=== PATIENT | male | born 1950 | race Caucasian/White ===

== ENCOUNTER 2020-02-03 21:58 | Inpatient (IN) | payer MEDICARE, MEDICAID ==
[~2020-02-03] VITALS: Ht 182.9 cm; Wt 96.7 kg
[2020-02-03] MEDS ORDERED: methylPREDNISolone sod succ 125mg/2ml vial IV ONE (22:10)
[2020-02-03] MEDS ORDERED: ipratropium/albuterol 3ml nebule NEB ONE (22:10)
[2020-02-03] MEDS ORDERED: propofol 1000mg/100ml bottle 100 ML IV PRN (22:25)
[2020-02-03 22:35] LABS: BASOPHILS % (AUTO) 0.4 % (0-1); EOSINOPHILS # (AUTO) 0.1 X10'3 (0-0.9); EOSINOPHILS % (AUTO) 1.1 % (0-6); HEMOGLOBIN 13.3 g/dl (14.0-17.9); LYMPHOCYTES # (AUTO) 0.7 X10'3 (1.1-4.8); LYMPHOCYTES % (AUTO) 6.3 % (21-51); MEAN CORPUSCULAR HEMOGLOBIN 31.8 PG (27.0-31.0); MEAN CORPUSCULAR HGB CONC 33.1 g/dL (33.0-36.5); MEAN CORPUSCULAR VOLUME 95.9 FL (78-98); MEAN PLATELET VOLUME 9.6 FL (7.4-10.4); MONOCYTES # (AUTO) 0.3 X10'3 (0-0.9); MONOCYTES % (AUTO) 2.5 % (2-12); NEUTROPHILS # (AUTO) 10.3 X10'3 (1.8-7.7); NEUTROPHILS % (AUTO) 89.7 % (42-75); PLATELET COUNT 160 X10'3 (140-440); RED BLOOD COUNT 4.17 X10'6 (4.70-6.10); RED CELL DISTRIBUTION WIDTH 16.8 % (11.5-14.5); WHITE BLOOD COUNT 11.5 X10'3 (4.5-11.0)
[2020-02-03] MEDS ORDERED: furosemide 10 MG/1 ML 10ml inj IV ONE (22:35)
[2020-02-03] MEDS ORDERED: AMLO2.5T2 PO (22:40)
[2020-02-03] MEDS ORDERED: UMEC1DIS (22:40)
[2020-02-03] MEDS ORDERED: DULO-31 PO (22:41)
[2020-02-03] MEDS ORDERED: DOCU-148 PO (22:41)
[2020-02-03] MEDS ORDERED: FURO-150 PO (22:42)
[2020-02-03] MEDS ORDERED: INSU100V43 (22:43)
[2020-02-03] MEDS ORDERED: HEPARIN 5000 UNIT (22:43)
[2020-02-03] MEDS ORDERED: MSC15T PO (22:44)
[2020-02-03 22:45] LABS: PARTIAL THROMBOPLASTIN TIME 29 SECONDS (22-32)
[2020-02-03] MEDS ORDERED: normal saline 1000ML IV soln IVB ONE (22:45)
[2020-02-03] MEDS ORDERED: NICO-630 TD (22:45)
[2020-02-03] MEDS ORDERED: vasopressin inj. 40 UNIT in normal saline 50ml IV soln 38 ML IV SCH (22:45)
[2020-02-03] MEDS ORDERED: PRED5TAB PO (22:45)
[2020-02-03] MEDS ORDERED: LACT1CAP75 PO (22:46)
[2020-02-03] MEDS ORDERED: LYR25C PO (22:46)
[2020-02-03] MEDS ORDERED: SENN-263 PO (22:47)
[2020-02-03 22:48] LABS: ALANINE AMINOTRANSFERASE 77 U/L (12-78); ALBUMIN 2.6 G/DL (3.4-5.0); ALBUMIN/GLOBULIN RATIO 0.6 (1.1-1.5); ALKALINE PHOSPHATASE 318 IU/L (46-116); ANION GAP 2 (8-16); ASPARTATE AMINO TRANSFERASE 42 U/L (10-37); BLOOD UREA NITROGEN 49 MG/DL (7-18); BUN/CREATININE RATIO 30.8 (5.4-32.0); CALCIUM 8.6 MG/DL (8.5-10.1); CHLORIDE 105 MMOL/L (99-107); CREATININE 1.59 MG/DL (0.60-1.10); GLUCOSE 254 MG/DL (70-104); POTASSIUM 5.6 MMOL/L (3.5-5.1); SODIUM 145 MMOL/L (135-145); TOTAL CARBON DIOXIDE 37.7 MMOL/L (24-32); TOTAL PROTEIN 6.8 G/DL (6.4-8.2); eGFR 44 ML/MIN
[2020-02-03] MEDS ORDERED: BUDE0.5A3 NEB (22:48)
[2020-02-03] MEDS ORDERED: MYL80T PO (22:48)
[2020-02-03] MEDS ORDERED: MYCOL15CR TOP (22:49)
[2020-02-03] MEDS ORDERED: VANC1VIA21 IV (22:49)
[2020-02-03] MEDS ORDERED: MAG355OR18 PO (22:50)
[2020-02-03] MEDS ORDERED: OXYC-150 PO (22:51)
[2020-02-03] MEDS ORDERED: ALB0.5UD IH (22:52)
[2020-02-03] MEDS ORDERED: POLY17PO10 PO (22:52)
[2020-02-03] MEDS ORDERED: NORepinephrine 8mg/ 250ml NS 250 ML IV ONE ×2 (22:56→23:00)
[2020-02-03 22:59] LABS: TROPONIN I 0.15 NG/ML (0.0-0.05)
[2020-02-03] MEDS ORDERED: normal saline 1000ml 1,000 ML IV SCH (23:19)
[2020-02-03] MEDS ORDERED: acetaminophen 325mg tablet PO PRN ×2 (23:20)
[2020-02-03] MEDS ORDERED: ondansetron/PF 4mg/2ml inj IV PRN (23:20)
[2020-02-03] MEDS ORDERED: LIDOcaine 2% 10ml TOPICAL JELLY (Urojet) TP ONE (23:20)
[2020-02-03] MEDS ORDERED: morphine 2 MG/ML inj. syringe IV PRN (23:20)
[2020-02-03] MEDS ORDERED: acetaminophen 650mg rectal suppository RC PRN (23:20)
[2020-02-03] MEDS: K, MAG and/or Phos replacement - Verify level? MC SCH (23:20)
[2020-02-03] MEDS ORDERED: potassium Cl 20 mEq SR tablet PO PRN ×2 (23:20)
[2020-02-03] MEDS ORDERED: morphine 4 MG/ML inj SYRINge IV PRN (23:20)
[2020-02-03] MEDS ORDERED: potassium Cl 20mEq/100mL bag 100 ML IV PRN ×2 (23:20)
[2020-02-03 23:54] LABS: CLARITY,URINE CLEAR (Clear); COLOR,URINE YELLOW (Yellow); GLUCOSE, URINE 100 mg/dl (Neg); KETONES,URINE NEGATIVE (Neg); LEUKOCYTE ESTERASE ,URINE NEGATIVE (Neg); NITRITES, URINE NEGATIVE (Neg); OCCULT BLOOD,URINE SMALL (Neg); PH,URINE 5.5 (4.8-8.0); PROTEIN,URINE >=300 mg/dl (Neg); UROBILINOGEN,URINE 0.2 E.U/dL (0.2-1.0)
[2020-02-03] MEDS: midazolam 100mg in NS 100ml 100 ML IV PRN (23:54)
[2020-02-03] MEDS ORDERED: VANCOmycin 1250MG/NS 250ml Bag 250 ML IV SCH (23:58)
[2020-02-04] VITALS (23 sets, daily range): BP systolic 95–127; BP diastolic 44–57
[2020-02-04 00:02] LABS: UA COLLECTION TYPE FOLEY CATH
[2020-02-04 00:03] LABS: BACTERIA,URINE NONE SEEN /HPF (Neg); RBC,URINE NONE SEEN /HPF (0-2); WBC,URINE NONE SEEN /HPF (0-4)
[2020-02-04 00:04] LABS: HYALINE CASTS 0-3 /LPF (NEGATIVE); SQUAMOUS EPITHELIAL CELL,UR FEW /LPF (FEW)
--- NOTE | 2020-02-04 00:13 | NUR ---
Rec'd report for MARIA ISABEL Horvath in the ER
--- NOTE | 2020-02-04 00:14 | NUR ---
foxing closer Ailyn increase Midazolam to 4 mg/hr
[2020-02-04] MEDS ORDERED: normal saline 1000ml 1,000 ML IV SCH (00:25)
[2020-02-04] MEDS: methylPREDNISolone sod succ/PF 40mg inj. IV SCH ×4 (02:29→20:45)
[2020-02-04] MEDS: ipratropium/albuterol 3ml nebule NEB PRN ×4 (02:37→22:58)
--- NOTE | 2020-02-04 06:23 | NUR ---
Problems reprioritized. Patient report given, questions answered & plan of care reviewed with MARIA ISABEL Colin.
--- NOTE | 2020-02-04 06:30 | NUR ---
Patient in room ICU 2043. I have received report from Juanita NICOLAS and had the opportunity to ask questions and assume patient care.
[2020-02-04] MEDS: budesonide 0.5mg/2ml UD nebule IH SCH ×2 (07:06→19:25)
[2020-02-04 07:28] LABS: BASOPHILS % (AUTO) 0.1 % (0-1); EOSINOPHILS % (AUTO) 0 % (0-6); HEMATOCRIT 28.4 % (42.0-52.0); HEMOGLOBIN 9.5 g/dl (14.0-17.9); LYMPHOCYTES # (AUTO) 0.1 X10'3 (1.1-4.8); LYMPHOCYTES % (AUTO) 4.4 % (21-51); MEAN CORPUSCULAR HEMOGLOBIN 31.4 PG (27.0-31.0); MEAN CORPUSCULAR HGB CONC 33.5 g/dL (33.0-36.5); MEAN CORPUSCULAR VOLUME 93.8 FL (78-98); MEAN PLATELET VOLUME 9.9 FL (7.4-10.4); MONOCYTES # (AUTO) 0.1 X10'3 (0-0.9); MONOCYTES % (AUTO) 3.4 % (2-12); NEUTROPHILS % (AUTO) 92.1 % (42-75); PLATELET COUNT 51 X10'3 (140-440); RED BLOOD COUNT 3.03 X10'6 (4.70-6.10); RED CELL DISTRIBUTION WIDTH 16.2 % (11.5-14.5); WHITE BLOOD COUNT 2.2 X10'3 (4.5-11.0)
[2020-02-04] MEDS: CEFEPIME 2gm in D5W 50mL 50 ML IV SCH ×2 (07:28→20:46)
[2020-02-04] MEDS: pantoprazole 40 MG vial IV SCH (07:28)
[2020-02-04 07:37] LABS: TOTAL CELLS COUNTED 100
[2020-02-04 07:38] LABS: ANISOCYTOSIS 1+; PLATELET ESTIMATE DECREASED
[2020-02-04 07:43] LABS: ALANINE AMINOTRANSFERASE 52 U/L (12-78); ALBUMIN 1.9 G/DL (3.4-5.0); ALBUMIN/GLOBULIN RATIO 0.7 (1.1-1.5); ALKALINE PHOSPHATASE 211 IU/L (46-116); ANION GAP 8 (8-16); ASPARTATE AMINO TRANSFERASE 37 U/L (10-37); BILIRUBIN,TOTAL 0.8 MG/DL (0.1-1.0); BLOOD UREA NITROGEN 61 MG/DL (7-18); BUN/CREATININE RATIO 33.9 (5.4-32.0); CALCIUM 7.7 MG/DL (8.5-10.1); CHLORIDE 106 MMOL/L (99-107); GLUCOSE 338 MG/DL (70-104); POTASSIUM 5.1 MMOL/L (3.5-5.1); SODIUM 146 MMOL/L (135-145); TOTAL PROTEIN 4.8 G/DL (6.4-8.2); eGFR 38 ML/MIN
[2020-02-04 07:46] LABS: MAGNESIUM 1.7 MG/DL (1.5-2.4); PHOSPHORUS 3.6 MG/DL (2.3-4.5); TRIGLYCERIDES 98 MG/DL (20-135)
[2020-02-04] MEDS: K, MAG and/or Phos replacement - Verify level? MC SCH (08:00)
[2020-02-04] MEDS: enoxaparin 40mg/0.4ml syringe SUBCUT SCH (08:00)
[2020-02-04] MEDS: duloxetine 30mg CAPSULE.DR PO SCH (08:00)
[2020-02-04] MEDS ORDERED: amLODIPine 2.5mg tablet PO SCH (08:00)
--- NOTE | 2020-02-04 08:00 | NUR ---
Held Lovenox per conversation with in regards to the drastic drop in platelets
[2020-02-04] MEDS ORDERED: NYST30CR2 TP (10:17)
[2020-02-04] MEDS ORDERED: NICO-631 TD (10:17)
[2020-02-04] MEDS ORDERED: dextrose ORAL solution 15 GM/59 ML bottle PO PRN ×2 (10:20)
[2020-02-04] MEDS ORDERED: insulin Lispro (HumaLOG) vial - multi-dose SQ SCH (10:20)
[2020-02-04] MEDS ORDERED: dextrose 50%-water 50ml dispensing syringe IV PRN ×2 (10:20)
[2020-02-04] MEDS ORDERED: glucagon, human recombinant 1mg kit SUBCUT PRN (10:20)
[2020-02-04 11:40] LABS: HEMOGLOBIN A1C 7.6 % (4.5-6.2)
[2020-02-04] MEDS: midazolam 100mg in NS 100ml 100 ML IV PRN ×2 (12:01→22:49)
--- NOTE | 2020-02-04 12:14 | NUR ---
Initial: Pt intubated admit s/p respiratory arrest DX bilateral PNA, CHF, sepsis, COPD exacerbation per MD. OG in place and MAP 71 today. EN recs below if prolonged intubation. Hx T2DM A1C 7.6 and current GLU 338 receiving solumedrol to start hyperglycemia protocol today. Will need DM ed once stable following extubation. LBM 02/03. Will continue to monitor. Rec: 1. IF EN; Vital AF at 80ml/hr goal 2. IF EN; water flush 200ml Q4 3. IF EN; PALB Q /; daily wts 4. routine bowel care 5. upon extubation; advance diet as medically indicated to carb controlled/heart healthy 6. DM ed once stable following extubation Addendum: 02/04/20 at [address] Amended: Links added.
[2020-02-04] MEDS: VANCOmycin 1250MG/NS 250ml Bag 250 ML IV SCH (14:49)
[2020-02-04] MEDS: dextrose 5%-water 1,000 ML IV SCH (15:55)
[2020-02-04] MEDS ORDERED: simethicone 80mg chew tab PO SCH (16:00)
[2020-02-04] MEDS ORDERED: acetaminophen 325mg/10.15ml oral unit dose solution OGT PRN ×2 (18:15→18:16)
[2020-02-04] MEDS ORDERED: amLODIPine 2.5mg tablet OGT SCH (18:20)
[2020-02-04] MEDS ORDERED: POTASSIUM BICARB 20meq eff tab 20 MEQ TABLET.EFF OGT PRN ×2 (18:22→18:23)
--- NOTE | 2020-02-04 18:22 | NUR ---
Problems reprioritized. Patient report given, questions answered & plan of care reviewed with Juanita NICOLAS.
--- NOTE | 2020-02-04 18:23 | NUR ---
Patient in room ICU 2043. I have received report from MARIA ISABEL Colin and had the opportunity to ask questions and assume patient care. Patient is intubated/sedated and resting comfortably, tube feed was started.
[2020-02-04] MEDS ORDERED: dextrose ORAL solution 15 GM/59 ML bottle OGT PRN ×2 (18:24)
[2020-02-04] MEDS ORDERED: NYSTATIN CREAM - 30GM TUBE TP SCH (20:00)
[2020-02-04] MEDS: morphine ER 15mg tablet PO SCH (20:00)
[2020-02-04] MEDS: sennosides 8.6mg tablet OGT SCH (20:45)
[2020-02-04] MEDS: pregabalin 25mg capsule OGT SCH (20:45)
[2020-02-04] MEDS: lactobacillus rhamnosus 10,000 MMU CELLS/CAPSULE OGT SCH (20:45)
[2020-02-04] MEDS: NYSTATIN CREAM - 30GM TUBE TP SCH (20:46)
[2020-02-04] MEDS: insulin glargine (Lantus) pen - multi-dose SQ SCH (21:03)
[2020-02-04] MEDS: insulin regular, human U-100 3ml vial - multi-dose SQ SCH (21:03)
[2020-02-04] MEDS: simethicone 80mg chew tab OGT SCH (23:59)
[2020-02-05] VITALS (24 sets, daily range): BP systolic 101–122; BP diastolic 45–60
[2020-02-05] MEDS: VANCOmycin 1250MG/NS 250ml Bag 250 ML IV SCH ×2 (02:04→14:17)
[2020-02-05] MEDS: methylPREDNISolone sod succ/PF 40mg inj. IV SCH ×4 (02:04→20:35)
[2020-02-05] MEDS: mineral oil/petrolatum ophthal oint EACHEYE SCH ×4 (02:05→20:35)
[2020-02-05] MEDS: insulin regular, human U-100 3ml vial - multi-dose SQ SCH ×4 (02:21→21:03)
[2020-02-05] MEDS: ipratropium/albuterol 3ml nebule NEB PRN ×2 (02:41→19:54)
[2020-02-05 02:57] LABS: BASOPHILS % (AUTO) 0.2 % (0-1); EOSINOPHILS % (AUTO) 0 % (0-6); HEMATOCRIT 28.6 % (42.0-52.0); HEMOGLOBIN 9.7 g/dl (14.0-17.9); LYMPHOCYTES # (AUTO) 0.1 X10'3 (1.1-4.8); LYMPHOCYTES % (AUTO) 2.3 % (21-51); MEAN CORPUSCULAR HEMOGLOBIN 31.6 PG (27.0-31.0); MEAN CORPUSCULAR HGB CONC 33.9 g/dL (33.0-36.5); MEAN CORPUSCULAR VOLUME 93.1 FL (78-98); MEAN PLATELET VOLUME 10.5 FL (7.4-10.4); MONOCYTES # (AUTO) 0.1 X10'3 (0-0.9); MONOCYTES % (AUTO) 3.5 % (2-12); NEUTROPHILS # (AUTO) 3.6 X10'3 (1.8-7.7); PLATELET COUNT 57 X10'3 (140-440); RED BLOOD COUNT 3.07 X10'6 (4.70-6.10); RED CELL DISTRIBUTION WIDTH 15.9 % (11.5-14.5); WHITE BLOOD COUNT 3.8 X10'3 (4.5-11.0)
[2020-02-05 03:08] LABS: ALANINE AMINOTRANSFERASE 47 U/L (12-78); ALBUMIN 1.9 G/DL (3.4-5.0); ALBUMIN/GLOBULIN RATIO 0.6 (1.1-1.5); ALKALINE PHOSPHATASE 183 IU/L (46-116); ANION GAP 3 (8-16); ASPARTATE AMINO TRANSFERASE 31 U/L (10-37); BILIRUBIN,TOTAL 0.5 MG/DL (0.1-1.0); BLOOD UREA NITROGEN 74 MG/DL (7-18); BUN/CREATININE RATIO 31.4 (5.4-32.0); CALCIUM 7.8 MG/DL (8.5-10.1); CHLORIDE 105 MMOL/L (99-107); CREATININE 2.36 MG/DL (0.60-1.10); GLUCOSE 415 MG/DL (70-104); MAGNESIUM 1.9 MG/DL (1.5-2.4); PHOSPHORUS 3.2 MG/DL (2.3-4.5); POTASSIUM 4.5 MMOL/L (3.5-5.1); SODIUM 143 MMOL/L (135-145); TOTAL CARBON DIOXIDE 35.4 MMOL/L (24-32); eGFR 28 ML/MIN
[2020-02-05 03:35] LABS: PLATELET ESTIMATE DECREASED
--- NOTE | 2020-02-05 06:29 | NUR ---
Problems reprioritized. Patient report given, questions answered & plan of care reviewed with MARIA ISABEL Bar.
--- NOTE | 2020-02-05 07:08 | NUR ---
Patient in room ICU 2043. I have received report from and had the opportunity to ask questions and assume patient care.
[2020-02-05] MEDS: pantoprazole 40 MG vial IV SCH (07:47)
[2020-02-05] MEDS: docusate sodium 100mg/10ml UD cup OGT SCH (07:47)
[2020-02-05] MEDS: CEFEPIME 2gm in D5W 50mL 50 ML IV SCH ×2 (07:47→20:35)
[2020-02-05] MEDS: pregabalin 25mg capsule OGT SCH ×2 (07:48→20:35)
[2020-02-05] MEDS: lactobacillus rhamnosus 10,000 MMU CELLS/CAPSULE OGT SCH ×2 (07:48→20:35)
[2020-02-05] MEDS: nicotine 14mg patch - 24hr TD SCH (07:48)
[2020-02-05] MEDS: predniSONE 5mg tablet OGT SCH (07:49)
[2020-02-05] MEDS: sennosides 8.6mg tablet OGT SCH ×2 (07:49→20:35)
[2020-02-05] MEDS: furosemide 40 MG/4 ML oral solution UD cup OGT SCH (07:49)
[2020-02-05] MEDS: simethicone 80mg chew tab OGT SCH ×3 (07:50→23:42)
[2020-02-05] MEDS: NYSTATIN CREAM - 30GM TUBE TP SCH ×2 (07:51→20:35)
[2020-02-05] MEDS: morphine ER 15mg tablet PO SCH (08:00)
[2020-02-05] MEDS: enoxaparin 40mg/0.4ml syringe SUBCUT SCH (08:00)
[2020-02-05] MEDS: duloxetine 30mg CAPSULE.DR PO SCH (08:00)
[2020-02-05] MEDS: K, MAG and/or Phos replacement - Verify level? MC SCH (08:00)
[2020-02-05] MEDS: dextrose 5%-water 1,000 ML IV SCH (09:11)
[2020-02-05] MEDS: budesonide 0.5mg/2ml UD nebule IH SCH ×2 (09:56→19:54)
[2020-02-05] MEDS ORDERED: VANCOMYCIN LEVEL IV ONE (13:30)
--- NOTE | 2020-02-05 13:34 | NUR ---
TF Consult: Pt initially started EN using Nepro to goal of 40ml/hr; MD agreeable to change to Vital AF more elemental formula since able to meet protein needs without overfeeding. Currently tolerating Nepro at 20ml/hr this AM. Water flush 50ml Q6 per client account specialist. May need HD per MD at rounds. Updated EN recs below. Will monitor for EN tolerance. Rec: 1. EN per MD using Vital AF at 80ml/hr goal; to provide 1920ml fluid, 2304 kcals, 1555ml free water, and 144g protein. Initiate at 40ml/hr since tolerating Nepro at 20ml/hr and advance 20ml Q8 to goal as tolerated. 2. water flush 50ml Q6 per client account specialist 3. PALB Q /; daily wts 4. routine bowel care 5. upon extubation; advance diet as medically indicated to carb controlled/heart healthy 6. DM ed once stable following extubation Addendum: 02/05/20 at [address] Amended: Links added.
[2020-02-05] MEDS ORDERED: VANCOmycin 1250MG/NS 250ml Bag 250 ML IV PRN (14:50)
--- NOTE | 2020-02-05 14:51 | NUR ---
lab called with a critical vanco trough of 37.8, called Dr. Claire he stated to stop vanco at this time. No new orders
--- NOTE | 2020-02-05 15:43 | NUR ---
Oskar'babita TINOCO per MD order, tip intact, PT tolerated well, 2x2 gauze placed with transparent dressing.
--- NOTE | 2020-02-05 18:22 | NUR ---
Problems reprioritized. Patient report given, questions answered & plan of care reviewed with .
[2020-02-05] MEDS: insulin glargine (Lantus) pen - multi-dose SQ SCH (21:04)
[2020-02-05] MEDS: FENTANYL-0.9 % NACL/PF 100 ML IV PRN (22:48)
[2020-02-06] VITALS (25 sets, daily range): BP systolic 98–120; BP diastolic 42–65
[2020-02-06] MEDS: insulin regular, human U-100 3ml vial - multi-dose SQ SCH ×4 (02:09→23:20)
[2020-02-06] MEDS: methylPREDNISolone sod succ/PF 40mg inj. IV SCH ×4 (02:09→22:13)
[2020-02-06] MEDS: mineral oil/petrolatum ophthal oint EACHEYE SCH ×4 (02:10→22:12)
[2020-02-06] MEDS: VANCOMYCIN LEVEL IV SCH (02:45)
[2020-02-06 04:11] LABS: ABG BASE EXCESS 7.2 mmol/L (-2.0-3.0); ABG HCO3 31.1 mmol/L (22.0-26.0); ABG OXYGEN SATURATION 96.5 % (95-98); ABG PCO2 (T) 41.3 mmHg (35.0-45.0); ABG PH (T) 7.495 (7.350-7.450); ABG PO2 (T) 87.8 mmHg (83-108); ALLEN'S TEST POSITIVE; FCOHb 0.2 % (0.5-1.5); FMetHb 0.3 % (0.3-1.12); PATIENT TEMPERATURE 36.7; PEEP 5 cm H2O; RESPIRATORY RATE 14 b/min; TIDAL VOLUME 500 mL; TOTAL HEMOGLOBIN 9.6 G/dl (14.0-17.9)
[2020-02-06 06:37] LABS: ALANINE AMINOTRANSFERASE 44 U/L (12-78); ALBUMIN 1.8 G/DL (3.4-5.0); ALBUMIN/GLOBULIN RATIO 0.6 (1.1-1.5); ALKALINE PHOSPHATASE 171 IU/L (46-116); ANION GAP 6 (8-16); ASPARTATE AMINO TRANSFERASE 32 U/L (10-37); BILIRUBIN,TOTAL 0.3 MG/DL (0.1-1.0); BLOOD UREA NITROGEN 84 MG/DL (7-18); BUN/CREATININE RATIO 29.7 (5.4-32.0); CALCIUM 8.1 MG/DL (8.5-10.1); CHLORIDE 105 MMOL/L (99-107); CREATININE 2.83 MG/DL (0.60-1.10); GLUCOSE 187 MG/DL (70-104); PHOSPHORUS 3.3 MG/DL (2.3-4.5); POTASSIUM 4.1 MMOL/L (3.5-5.1); PREALBUMIN 14.8 MG/DL (19-36); SODIUM 145 MMOL/L (135-145); TOTAL CARBON DIOXIDE 34.1 MMOL/L (24-32); TOTAL PROTEIN 4.9 G/DL (6.4-8.2); eGFR 22 ML/MIN
[2020-02-06] MEDS: pantoprazole 40 MG vial IV SCH (07:52)
[2020-02-06] MEDS: CEFEPIME 2gm in D5W 50mL 50 ML IV SCH ×2 (07:52→22:12)
[2020-02-06] MEDS: NYSTATIN CREAM - 30GM TUBE TP SCH ×2 (07:53→22:14)
[2020-02-06] MEDS: ipratropium/albuterol 3ml nebule NEB PRN ×2 (07:58→19:31)
[2020-02-06] MEDS: budesonide 0.5mg/2ml UD nebule IH SCH ×2 (07:58→19:31)
[2020-02-06] MEDS: enoxaparin 40mg/0.4ml syringe SUBCUT SCH (08:00)
[2020-02-06] MEDS: K, MAG and/or Phos replacement - Verify level? MC SCH (08:00)
[2020-02-06] MEDS: predniSONE 5mg tablet OGT SCH (08:02)
[2020-02-06] MEDS: furosemide 40 MG/4 ML oral solution UD cup OGT SCH (08:02)
[2020-02-06] MEDS: docusate sodium 100mg/10ml UD cup OGT SCH (08:02)
[2020-02-06] MEDS: lactobacillus rhamnosus 10,000 MMU CELLS/CAPSULE OGT SCH ×2 (08:02→22:13)
[2020-02-06] MEDS: simethicone 80mg chew tab OGT SCH ×2 (08:03→15:25)
[2020-02-06] MEDS: pregabalin 25mg capsule OGT SCH ×2 (08:03→22:13)
[2020-02-06] MEDS: sennosides 8.6mg tablet OGT SCH ×2 (08:03→22:13)
[2020-02-06] MEDS: nicotine 14mg patch - 24hr TD SCH (08:05)
[2020-02-06 08:26] LABS: BASOPHILS % (AUTO) 0.1 % (0-1); EOSINOPHILS % (AUTO) 0 % (0-6); HEMATOCRIT 29.8 % (42.0-52.0); LYMPHOCYTES # (AUTO) 0.1 X10'3 (1.1-4.8); LYMPHOCYTES % (AUTO) 4.4 % (21-51); MEAN CORPUSCULAR HEMOGLOBIN 31.3 PG (27.0-31.0); MEAN CORPUSCULAR HGB CONC 33.7 g/dL (33.0-36.5); MEAN CORPUSCULAR VOLUME 92.8 FL (78-98); MEAN PLATELET VOLUME 9.8 FL (7.4-10.4); MONOCYTES # (AUTO) 0.1 X10'3 (0-0.9); MONOCYTES % (AUTO) 4.1 % (2-12); NEUTROPHILS # (AUTO) 2.8 X10'3 (1.8-7.7); NEUTROPHILS % (AUTO) 91.4 % (42-75); RED BLOOD COUNT 3.21 X10'6 (4.70-6.10); RED CELL DISTRIBUTION WIDTH 16.1 % (11.5-14.5)
[2020-02-06 08:27] LABS: PLATELET COUNT 41 X10'3 (140-440)
[2020-02-06] MEDS: midazolam 100mg in NS 100ml 100 ML IV PRN (08:30)
[2020-02-06 09:32] LABS: ANISOCYTOSIS 1+; PLATELET ESTIMATE DECREASED; TOTAL CELLS COUNTED 100
--- NOTE | 2020-02-06 09:57 | NUR ---
Plt 41, Reported to Dr. Claire, Held [facility]
[2020-02-06] MEDS: amLODIPine 5mg tablet OGT SCH (11:17)
[2020-02-06] MEDS: FENTANYL-0.9 % NACL/PF 100 ML IV PRN (13:25)
[2020-02-06] MEDS ORDERED: furosemide 40mg/4ml inj IV ONE (17:35)
--- NOTE | 2020-02-06 20:47 | NUR ---
183..Patient in room ICU 2043. I have received report from day RN and had the opportunity to ask questions and assume patient care. Pt is status post code blue, et tube secure with MD milena at bedside.
--- NOTE | 2020-02-06 20:49 | NUR ---
..After discussion with Renetta PRODUCTION FOREMAN, daughter wishes to make pt comfort care. Per MD orders and PRODUCTION FOREMAN orders pt code status changes to comfort care.
--- NOTE | 2020-02-06 20:51 | NUR ---
[id number]..Fentanyl and ativan given as ordered, ventilator discontinued, daughter at bedside, pt asystolic at 2049.
--- NOTE | 2020-02-06 21:19 | NUR ---
..ERROR..All note posted on this pt from 1829 until now, posted on wrong pt.ERROR
[2020-02-06] MEDS: insulin glargine (Lantus) pen - multi-dose SQ SCH (23:17)
[2020-02-07] VITALS (23 sets, daily range): BP systolic 88–129; BP diastolic 44–94
[2020-02-07] MEDS: mineral oil/petrolatum ophthal oint EACHEYE SCH ×4 (02:00→20:56)
[2020-02-07] MEDS: insulin regular, human U-100 3ml vial - multi-dose SQ SCH ×4 (02:27→21:04)
[2020-02-07] MEDS: methylPREDNISolone sod succ/PF 40mg inj. IV SCH ×4 (02:31→20:56)
--- NOTE | 2020-02-07 02:49 | NUR ---
183..Patient in room ICU 2043. I have received report from day RN and had the opportunity to ask questions and assume patient care.
--- NOTE | 2020-02-07 02:49 | NUR ---
1999..Assessment as noted, fentanyl and versed drips appear effective for comfort, placed back on vent rate for over night.
--- NOTE | 2020-02-07 02:51 | NUR ---
0000..No changes noted.
[2020-02-07] MEDS: VANCOMYCIN LEVEL IV SCH (03:00)
[2020-02-07 04:11] LABS: ABG BASE EXCESS 4.9 mmol/L (-2.0-3.0); ABG HCO3 30.3 mmol/L (22.0-26.0); ABG OXYGEN SATURATION 94.6 % (95-98); ABG PCO2 (T) 50.1 mmHg (35.0-45.0); ABG PH (T) 7.402 (7.350-7.450); ABG PO2 (T) 78.2 mmHg (83-108); ALLEN'S TEST POSITIVE; FCOHb 0.2 % (0.5-1.5); FMetHb 0.3 % (0.3-1.12); FO2Hb 94.1 % (94-100); PATIENT TEMPERATURE 37.6; RESPIRATORY RATE 14 b/min; TIDAL VOLUME 500 mL; TOTAL HEMOGLOBIN 10.9 G/dl (14.0-17.9)
--- NOTE | 2020-02-07 05:46 | NUR ---
0400..No changes noted.
[2020-02-07 06:26] LABS: BASOPHILS % (AUTO) 0 % (0-1); EOSINOPHILS % (AUTO) 0 % (0-6); HEMATOCRIT 32.2 % (42.0-52.0); HEMOGLOBIN 11.2 g/dl (14.0-17.9); LYMPHOCYTES # (AUTO) 0.1 X10'3 (1.1-4.8); LYMPHOCYTES % (AUTO) 2.1 % (21-51); MEAN CORPUSCULAR HEMOGLOBIN 32.1 PG (27.0-31.0); MEAN CORPUSCULAR HGB CONC 34.7 g/dL (33.0-36.5); MEAN CORPUSCULAR VOLUME 92.7 FL (78-98); MEAN PLATELET VOLUME 10.2 FL (7.4-10.4); MONOCYTES # (AUTO) 0.1 X10'3 (0-0.9); MONOCYTES % (AUTO) 2.8 % (2-12); NEUTROPHILS # (AUTO) 2.9 X10'3 (1.8-7.7); NEUTROPHILS % (AUTO) 95.1 % (42-75); RED BLOOD COUNT 3.47 X10'6 (4.70-6.10); RED CELL DISTRIBUTION WIDTH 16.2 % (11.5-14.5)
[2020-02-07 06:36] LABS: ALANINE AMINOTRANSFERASE 42 U/L (12-78); ALBUMIN 1.9 G/DL (3.4-5.0); ALBUMIN/GLOBULIN RATIO 0.5 (1.1-1.5); ALKALINE PHOSPHATASE 185 IU/L (46-116); ANION GAP 7 (8-16); ASPARTATE AMINO TRANSFERASE 24 U/L (10-37); BILIRUBIN,TOTAL 0.4 MG/DL (0.1-1.0); BLOOD UREA NITROGEN 96 MG/DL (7-18); BUN/CREATININE RATIO 31.1 (5.4-32.0); CALCIUM 8.1 MG/DL (8.5-10.1); CHLORIDE 103 MMOL/L (99-107); CREATININE 3.09 MG/DL (0.60-1.10); GLUCOSE 430 MG/DL (70-104); MAGNESIUM 2.2 MG/DL (1.5-2.4); PHOSPHORUS 3.9 MG/DL (2.3-4.5); POTASSIUM 4.1 MMOL/L (3.5-5.1); SODIUM 143 MMOL/L (135-145); TOTAL CARBON DIOXIDE 32.7 MMOL/L (24-32); TOTAL PROTEIN 5.5 G/DL (6.4-8.2); eGFR 20 ML/MIN
--- NOTE | 2020-02-07 06:36 | NUR ---
0630..Problems reprioritized. Patient report given, questions answered & plan of care reviewed with Markell NICOLAS.
[2020-02-07 06:41] LABS: PLATELET COUNT 41 X10'3 (140-440)
[2020-02-07 06:42] LABS: VANCOMYCIN,TROUGH 28.4 UG/ML (6.0-14.0)
[2020-02-07] MEDS: furosemide 40 MG/4 ML oral solution UD cup OGT SCH (07:57)
[2020-02-07] MEDS: lactobacillus rhamnosus 10,000 MMU CELLS/CAPSULE OGT SCH ×2 (07:57→20:56)
[2020-02-07] MEDS: predniSONE 5mg tablet OGT SCH (07:57)
[2020-02-07] MEDS: pregabalin 25mg capsule OGT SCH ×2 (07:57→20:56)
[2020-02-07] MEDS: CEFEPIME 2gm in D5W 50mL 50 ML IV SCH ×2 (07:57→20:57)
[2020-02-07] MEDS: amLODIPine 5mg tablet OGT SCH (07:58)
[2020-02-07] MEDS: simethicone 80mg chew tab OGT SCH ×4 (07:58→23:47)
[2020-02-07] MEDS: budesonide 0.5mg/2ml UD nebule IH SCH ×2 (07:58→19:11)
[2020-02-07] MEDS: ipratropium/albuterol 3ml nebule NEB PRN (07:59)
[2020-02-07] MEDS: K, MAG and/or Phos replacement - Verify level? MC SCH (08:00)
[2020-02-07] MEDS: NYSTATIN CREAM - 30GM TUBE TP SCH ×2 (08:00→20:56)
[2020-02-07] MEDS: pantoprazole 40 MG vial IV SCH (08:00)
[2020-02-07] MEDS: enoxaparin 30mg/0.3ml syringe SUBCUT SCH (08:00)
[2020-02-07] MEDS: docusate sodium 100mg/10ml UD cup OGT SCH (08:00)
[2020-02-07] MEDS: nicotine 14mg patch - 24hr TD SCH (08:00)
[2020-02-07] MEDS: sennosides 8.6mg tablet OGT SCH ×2 (08:00→20:00)
[2020-02-07] MEDS: midazolam 100mg in NS 100ml 100 ML IV PRN (08:08)
--- NOTE | 2020-02-07 12:06 | NUR ---
Reassessment: Pt tolerating TF at goal rate of 80 mL/hr with GRV WNL. Pt with elevated BG levels with range of 187-430 mg/dL. TF at goal rate is providing 8.9 g CHO/hr and pt on routine steroids. Pt now on level 6 hyperglycemic protocol. LBM documented as 02/03 however per med list bowel care medications held today d/t pt with diarrhea. Will continue to follow closely. Rec: 1. EN per MD using Vital AF at 80ml/hr goal; to provide 1920ml fluid, 2304 kcals, 1555ml free water, and 144g protein. Initiate at 40ml/hr since tolerating Nepro at 20ml/hr and advance 20ml Q8 to goal as tolerated. 2. water flush 50ml Q6H per bingo manager 3. PALB Q /; daily wts 4. routine bowel care 5. upon extubation; advance diet as medically indicated to carb controlled/heart healthy 6. DM ed once stable following extubation Addendum: 02/07/20 at [address] Amended: Links added.
[2020-02-07] MEDS ORDERED: ipratropium 0.5 MG/2.5ML nebule IH PRN (14:30)
[2020-02-07] MEDS ORDERED: furosemide 20 MG/2 ML vial IV SCH ×2 (17:45→20:00)
[2020-02-07] MEDS ORDERED: furosemide 10 MG/1 ML 10ml inj IV ONE (17:45)
[2020-02-07] MEDS: FENTANYL-0.9 % NACL/PF 100 ML IV PRN (17:46)
[2020-02-07] MEDS: albuterol 2.5 MG/3 ML nebule NEB PRN (19:11)
[2020-02-07] MEDS: furosemide 20 MG/2 ML vial IV SCH (20:57)
[2020-02-07] MEDS: insulin glargine (Lantus) pen - multi-dose SQ SCH (21:07)
[2020-02-08] VITALS (25 sets, daily range): BP systolic 99–128; BP diastolic 47–61
[2020-02-08] MEDS: VANCOMYCIN LEVEL IV SCH (01:53)
[2020-02-08] MEDS: mineral oil/petrolatum ophthal oint EACHEYE SCH ×4 (02:29→21:28)
[2020-02-08] MEDS: methylPREDNISolone sod succ/PF 40mg inj. IV SCH ×4 (02:29→21:29)
[2020-02-08] MEDS: insulin regular, human U-100 3ml vial - multi-dose SQ SCH ×4 (02:32→21:42)
[2020-02-08 04:26] LABS: ABG BASE EXCESS 7.5 mmol/L (-2.0-3.0); ABG HCO3 33.8 mmol/L (22.0-26.0); ABG OXYGEN SATURATION 91.1 % (95-98); ABG PCO2 (T) 57.2 mmHg (35.0-45.0); ABG PO2 (T) 62.7 mmHg (83-108); ALLEN'S TEST POSITIVE; FMetHb 0.1 % (0.3-1.12); PEEP 5 cm H2O; RESPIRATORY RATE 14 b/min; TIDAL VOLUME 500 mL; TOTAL HEMOGLOBIN 10.5 G/dl (14.0-17.9)
[2020-02-08 05:37] LABS: BASOPHILS % (AUTO) 0 % (0-1); EOSINOPHILS % (AUTO) 0 % (0-6); LYMPHOCYTES # (AUTO) 0.1 X10'3 (1.1-4.8); LYMPHOCYTES % (AUTO) 2.7 % (21-51); MEAN CORPUSCULAR HGB CONC 34.6 g/dL (33.0-36.5); MEAN CORPUSCULAR VOLUME 92.5 FL (78-98); MEAN PLATELET VOLUME 10.3 FL (7.4-10.4); MONOCYTES # (AUTO) 0.1 X10'3 (0-0.9); MONOCYTES % (AUTO) 2.7 % (2-12); NEUTROPHILS # (AUTO) 2.5 X10'3 (1.8-7.7); NEUTROPHILS % (AUTO) 94.6 % (42-75); RED BLOOD COUNT 3.14 X10'6 (4.70-6.10); RED CELL DISTRIBUTION WIDTH 15.7 % (11.5-14.5); WHITE BLOOD COUNT 2.7 X10'3 (4.5-11.0)
[2020-02-08 06:10] LABS: ALANINE AMINOTRANSFERASE 40 U/L (12-78); ALBUMIN 1.8 G/DL (3.4-5.0); ALBUMIN/GLOBULIN RATIO 0.6 (1.1-1.5); ALKALINE PHOSPHATASE 153 IU/L (46-116); ANION GAP 8 (8-16); ASPARTATE AMINO TRANSFERASE 29 U/L (10-37); BILIRUBIN,TOTAL 0.4 MG/DL (0.1-1.0); BLOOD UREA NITROGEN 109 MG/DL (7-18); BUN/CREATININE RATIO 33.9 (5.4-32.0); CALCIUM 7.8 MG/DL (8.5-10.1); CHLORIDE 104 MMOL/L (99-107); CREATININE 3.22 MG/DL (0.60-1.10); GLUCOSE 163 MG/DL (70-104); MAGNESIUM 2.1 MG/DL (1.5-2.4); PHOSPHORUS 3.8 MG/DL (2.3-4.5); SODIUM 145 MMOL/L (135-145); TOTAL CARBON DIOXIDE 33.4 MMOL/L (24-32); eGFR 19 ML/MIN
--- NOTE | 2020-02-08 06:36 | NUR ---
report received from MARAI ISABEL Huitron.
[2020-02-08 06:59] LABS: TOTAL CELLS COUNTED 100
[2020-02-08 07:01] LABS: PLATELET ESTIMATE DECREASED
[2020-02-08 07:05] LABS: PLATELET COUNT 33 X10'3 (140-440)
[2020-02-08] MEDS: budesonide 0.5mg/2ml UD nebule IH SCH ×2 (07:46→19:39)
[2020-02-08] MEDS: furosemide 40 MG/4 ML oral solution UD cup OGT SCH (08:00)
[2020-02-08] MEDS: enoxaparin 30mg/0.3ml syringe SUBCUT SCH (08:00)
[2020-02-08] MEDS: K, MAG and/or Phos replacement - Verify level? MC SCH (08:00)
[2020-02-08] MEDS: nicotine 14mg patch - 24hr TD SCH (08:00)
[2020-02-08] MEDS: CEFEPIME 2gm in D5W 50mL 50 ML IV SCH ×2 (08:49→21:28)
[2020-02-08] MEDS: docusate sodium 100mg/10ml UD cup OGT SCH (08:49)
[2020-02-08] MEDS: NYSTATIN CREAM - 30GM TUBE TP SCH ×2 (08:49→21:28)
[2020-02-08] MEDS: lactobacillus rhamnosus 10,000 MMU CELLS/CAPSULE OGT SCH ×2 (08:50→21:30)
[2020-02-08] MEDS: furosemide 20 MG/2 ML vial IV SCH ×2 (08:50→21:28)
[2020-02-08] MEDS: pantoprazole 40 MG vial IV SCH (08:50)
[2020-02-08] MEDS: sennosides 8.6mg tablet OGT SCH ×2 (08:51→20:00)
[2020-02-08] MEDS: amLODIPine 5mg tablet OGT SCH (08:51)
[2020-02-08] MEDS: pregabalin 25mg capsule OGT SCH ×2 (08:51→21:28)
[2020-02-08] MEDS: predniSONE 5mg tablet OGT SCH (08:51)
[2020-02-08] MEDS: simethicone 80mg chew tab OGT SCH ×3 (08:52→23:58)
[2020-02-08] MEDS: albuterol 2.5 MG/3 ML nebule NEB PRN (19:39)
[2020-02-08] MEDS: FENTANYL-0.9 % NACL/PF 100 ML IV PRN (21:29)
[2020-02-08] MEDS: midazolam 100mg in NS 100ml 100 ML IV PRN (21:29)
[2020-02-08] MEDS: insulin glargine (Lantus) pen - multi-dose SQ SCH (21:44)
[2020-02-09] VITALS (24 sets, daily range): BP systolic 102–126; BP diastolic 44–69
[2020-02-09] MEDS: mineral oil/petrolatum ophthal oint EACHEYE SCH ×4 (02:15→20:46)
[2020-02-09] MEDS: insulin regular, human U-100 3ml vial - multi-dose SQ SCH ×3 (02:16→21:23)
[2020-02-09] MEDS: VANCOMYCIN LEVEL IV SCH (02:27)
[2020-02-09 03:36] LABS: ABG BASE EXCESS 4.2 mmol/L (-2.0-3.0); ABG HCO3 31.2 mmol/L (22.0-26.0); ABG OXYGEN SATURATION 88.5 % (95-98); ABG PCO2 (T) 57.9 mmHg (35.0-45.0); ABG PH (T) 7.346 (7.350-7.450); ABG PO2 (T) 58.7 mmHg (83-108); ALLEN'S TEST POSITIVE; FCOHb 0.1 % (0.5-1.5); FMetHb 0.1 % (0.3-1.12); FO2Hb 88.3 % (94-100); PATIENT TEMPERATURE 36.5; PEEP 5 cm H2O; TOTAL HEMOGLOBIN 10.8 G/dl (14.0-17.9)
[2020-02-09 05:50] LABS: BASOPHILS % (AUTO) 0.1 % (0-1); EOSINOPHILS % (AUTO) 0 % (0-6); HEMATOCRIT 31.8 % (42.0-52.0); HEMOGLOBIN 10.8 g/dl (14.0-17.9); LYMPHOCYTES # (AUTO) 0.1 X10'3 (1.1-4.8); LYMPHOCYTES % (AUTO) 2.2 % (21-51); MEAN CORPUSCULAR HEMOGLOBIN 31.5 PG (27.0-31.0); MEAN CORPUSCULAR HGB CONC 33.9 g/dL (33.0-36.5); MEAN CORPUSCULAR VOLUME 92.9 FL (78-98); MEAN PLATELET VOLUME 10.9 FL (7.4-10.4); MONOCYTES # (AUTO) 0.1 X10'3 (0-0.9); NEUTROPHILS # (AUTO) 3.5 X10'3 (1.8-7.7); NEUTROPHILS % (AUTO) 93.7 % (42-75); RED BLOOD COUNT 3.42 X10'6 (4.70-6.10); RED CELL DISTRIBUTION WIDTH 15.9 % (11.5-14.5); WHITE BLOOD COUNT 3.7 X10'3 (4.5-11.0)
[2020-02-09 06:05] LABS: PLATELET COUNT 30 X10'3 (140-440)
[2020-02-09 06:19] LABS: ALANINE AMINOTRANSFERASE 45 U/L (12-78); ALBUMIN/GLOBULIN RATIO 0.6 (1.1-1.5); ALKALINE PHOSPHATASE 159 IU/L (46-116); ANION GAP 7 (8-16); ASPARTATE AMINO TRANSFERASE 30 U/L (10-37); BILIRUBIN,TOTAL 0.4 MG/DL (0.1-1.0); BLOOD UREA NITROGEN 127 MG/DL (7-18); BUN/CREATININE RATIO 35.8 (5.4-32.0); CHLORIDE 104 MMOL/L (99-107); CREATININE 3.55 MG/DL (0.60-1.10); GLUCOSE 140 MG/DL (70-104); MAGNESIUM 2.3 MG/DL (1.5-2.4); PHOSPHORUS 4.6 MG/DL (2.3-4.5); POTASSIUM 4.2 MMOL/L (3.5-5.1); SODIUM 145 MMOL/L (135-145); TOTAL CARBON DIOXIDE 33.9 MMOL/L (24-32); TOTAL PROTEIN 5.3 G/DL (6.4-8.2); eGFR 17 ML/MIN
[2020-02-09 06:21] LABS: VANCOMYCIN,TROUGH 21.7 UG/ML (6.0-14.0)
[2020-02-09] MEDS: budesonide 0.5mg/2ml UD nebule IH SCH ×2 (07:11→20:08)
[2020-02-09] MEDS: albuterol 2.5 MG/3 ML nebule NEB PRN ×2 (07:11→20:08)
[2020-02-09] MEDS: methylPREDNISolone sod succ/PF 40mg inj. IV SCH ×2 (07:15→20:46)
[2020-02-09] MEDS: CEFEPIME 2gm in D5W 50mL 50 ML IV SCH ×2 (07:15→20:45)
[2020-02-09] MEDS: furosemide 40 MG/4 ML oral solution UD cup OGT SCH (07:16)
[2020-02-09] MEDS: simethicone 80mg chew tab OGT SCH ×2 (07:16→16:04)
[2020-02-09] MEDS: lactobacillus rhamnosus 10,000 MMU CELLS/CAPSULE OGT SCH ×2 (07:16→20:46)
[2020-02-09] MEDS: amLODIPine 5mg tablet OGT SCH (07:16)
[2020-02-09] MEDS: predniSONE 5mg tablet OGT SCH (07:16)
[2020-02-09] MEDS: pregabalin 25mg capsule OGT SCH ×2 (07:17→20:45)
[2020-02-09] MEDS: furosemide 20 MG/2 ML vial IV SCH ×2 (07:17→20:46)
[2020-02-09] MEDS: NYSTATIN CREAM - 30GM TUBE TP SCH ×2 (07:19→20:45)
[2020-02-09] MEDS: nicotine 14mg patch - 24hr TD SCH (07:19)
[2020-02-09] MEDS: sennosides 8.6mg tablet OGT SCH ×2 (08:00→20:46)
[2020-02-09] MEDS: pantoprazole 40 MG vial IV SCH (08:00)
[2020-02-09] MEDS: K, MAG and/or Phos replacement - Verify level? MC SCH (08:00)
[2020-02-09] MEDS: enoxaparin 30mg/0.3ml syringe SUBCUT SCH (08:00)
[2020-02-09] MEDS: docusate sodium 100mg/10ml UD cup OGT SCH (08:00)
[2020-02-09] MEDS: midazolam 100mg in NS 100ml 100 ML IV PRN (16:04)
--- NOTE | 2020-02-09 18:20 | NUR ---
Patient in room ICU 2043. I have received report from Ysabel NICOLAS and had the opportunity to ask questions and assume patient care. Patient currently with eyes open and moving his arms, not following commands. Bolus with versed/fentaly given and repositioned in bed, patient now asleep. BP WNL at this time. Will continue to monitor patient.
[2020-02-09] MEDS: FENTANYL-0.9 % NACL/PF 100 ML IV PRN (19:54)
[2020-02-09] MEDS: insulin glargine (Lantus) pen - multi-dose SQ SCH (21:24)
[2020-02-10] VITALS (23 sets, daily range): BP systolic 93–131; BP diastolic 43–66
[2020-02-10] MEDS: simethicone 80mg chew tab OGT SCH ×3 (00:03→23:55)
[2020-02-10] MEDS: mineral oil/petrolatum ophthal oint EACHEYE SCH ×4 (01:51→20:00)
[2020-02-10] MEDS: insulin regular, human U-100 3ml vial - multi-dose SQ SCH ×3 (02:24→14:32)
[2020-02-10] MEDS: VANCOMYCIN LEVEL IV SCH (03:00)
[2020-02-10 03:51] LABS: ABG BASE EXCESS 5.8 mmol/L (-2.0-3.0); ABG HCO3 31.3 mmol/L (22.0-26.0); ABG OXYGEN SATURATION 95.5 % (95-98); ABG PCO2 (T) 51.7 mmHg (35.0-45.0); ABG PH (T) 7.403 (7.350-7.450); ABG PO2 (T) 85.6 mmHg (83-108); ALLEN'S TEST POSITIVE; FCOHb 0.3 % (0.5-1.5); FMetHb 0.3 % (0.3-1.12); FO2Hb 94.9 % (94-100); PATIENT TEMPERATURE 37.8; TOTAL HEMOGLOBIN 10.5 G/dl (14.0-17.9)
[2020-02-10] MEDS: midazolam 100mg in NS 100ml 100 ML IV PRN (05:35)
[2020-02-10 05:50] LABS: BASOPHILS % (AUTO) 0 % (0-1); EOSINOPHILS % (AUTO) 0.2 % (0-6); HEMATOCRIT 29.2 % (42.0-52.0); HEMOGLOBIN 9.9 g/dl (14.0-17.9); LYMPHOCYTES # (AUTO) 0.1 X10'3 (1.1-4.8); LYMPHOCYTES % (AUTO) 3.5 % (21-51); MEAN CORPUSCULAR HEMOGLOBIN 31.4 PG (27.0-31.0); MEAN CORPUSCULAR VOLUME 92.6 FL (78-98); MEAN PLATELET VOLUME 11.7 FL (7.4-10.4); MONOCYTES # (AUTO) 0.1 X10'3 (0-0.9); MONOCYTES % (AUTO) 4.9 % (2-12); NEUTROPHILS # (AUTO) 2.6 X10'3 (1.8-7.7); NEUTROPHILS % (AUTO) 91.4 % (42-75); RED BLOOD COUNT 3.15 X10'6 (4.70-6.10); RED CELL DISTRIBUTION WIDTH 16.3 % (11.5-14.5); WHITE BLOOD COUNT 2.8 X10'3 (4.5-11.0)
[2020-02-10 06:05] LABS: PLATELET COUNT 31 X10'3 (140-440)
[2020-02-10 06:12] LABS: ALANINE AMINOTRANSFERASE 43 U/L (12-78); ALBUMIN 1.8 G/DL (3.4-5.0); ALBUMIN/GLOBULIN RATIO 0.6 (1.1-1.5); ALKALINE PHOSPHATASE 150 IU/L (46-116); ANION GAP 9 (8-16); ASPARTATE AMINO TRANSFERASE 29 U/L (10-37); BILIRUBIN,TOTAL 0.3 MG/DL (0.1-1.0); BLOOD UREA NITROGEN 145 MG/DL (7-18); BUN/CREATININE RATIO 39.6 (5.4-32.0); CALCIUM 7.9 MG/DL (8.5-10.1); CHLORIDE 103 MMOL/L (99-107); CREATININE 3.66 MG/DL (0.60-1.10); GLUCOSE 277 MG/DL (70-104); MAGNESIUM 2.3 MG/DL (1.5-2.4); PHOSPHORUS 4.1 MG/DL (2.3-4.5); POTASSIUM 4.5 MMOL/L (3.5-5.1); PREALBUMIN 30.6 MG/DL (19-36); SODIUM 144 MMOL/L (135-145); TOTAL CARBON DIOXIDE 31.6 MMOL/L (24-32); TOTAL PROTEIN 4.9 G/DL (6.4-8.2); eGFR 17 ML/MIN
--- NOTE | 2020-02-10 06:19 | NUR ---
Problems reprioritized. Patient report given, questions answered & plan of care reviewed with Ysabel NICOLAS.
[2020-02-10] MEDS: docusate sodium 100mg/10ml UD cup OGT SCH (07:29)
[2020-02-10] MEDS: nicotine 14mg patch - 24hr TD SCH (07:29)
[2020-02-10] MEDS: CEFEPIME 2gm in D5W 50mL 50 ML IV SCH ×2 (07:29→20:30)
[2020-02-10] MEDS: sennosides 8.6mg tablet OGT SCH ×2 (07:30→20:30)
[2020-02-10] MEDS: furosemide 20 MG/2 ML vial IV SCH ×2 (07:30→20:30)
[2020-02-10] MEDS: methylPREDNISolone sod succ/PF 40mg inj. IV SCH ×2 (07:31→20:30)
[2020-02-10] MEDS: furosemide 40 MG/4 ML oral solution UD cup OGT SCH (07:31)
[2020-02-10] MEDS: lactobacillus rhamnosus 10,000 MMU CELLS/CAPSULE OGT SCH ×2 (07:31→20:30)
[2020-02-10] MEDS: amLODIPine 5mg tablet OGT SCH (07:31)
[2020-02-10] MEDS: budesonide 0.5mg/2ml UD nebule IH SCH ×2 (07:36→19:45)
[2020-02-10] MEDS: pantoprazole 40 MG vial IV SCH (08:00)
[2020-02-10] MEDS: enoxaparin 30mg/0.3ml syringe SUBCUT SCH (08:00)
[2020-02-10] MEDS: K, MAG and/or Phos replacement - Verify level? MC SCH (08:00)
[2020-02-10 09:40] LABS: TOTAL CELLS COUNTED 100
[2020-02-10 09:41] LABS: PLATELET ESTIMATE DECREASED
[2020-02-10 09:43] LABS: ANISOCYTOSIS 1+; POLYCHROMASIA FEW
[2020-02-10 09:48] LABS: LARGE PLATELETS FEW
[2020-02-10] MEDS: NYSTATIN CREAM - 30GM TUBE TP SCH ×2 (11:23→20:30)
[2020-02-10] MEDS: pregabalin 25mg capsule OGT SCH ×2 (11:23→20:30)
--- NOTE | 2020-02-10 13:33 | NUR ---
Reassessment: Pt tolerating TF at goal. Will need TDC for HD per MD w/ creatinine and BUN increasing. PALB WNL and meeting pt needs without overfeeding. LBM 02/07. RD d/w RN regarding holding probiotic IF biomaterials engineer is agreeable given WBC 2.8 today. Will continue to monitor. Rec: 1. EN per MD using Vital AF at 80ml/hr goal; to provide 1920ml fluid, 2304 kcals, 1555ml free water, and 144g protein. Initiate at 40ml/hr since tolerating Nepro at 20ml/hr and advance 20ml Q8 to goal as tolerated. 2. water flush 50ml Q6H per biomaterials engineer 3. PALB Q /; daily wts 4. routine bowel care 5. upon extubation; advance diet as medically indicated to carb controlled/heart healthy 6. DM ed once stable following extubation Addendum: 02/10/20 at [address] Amended: Links added.
[2020-02-10] MEDS ORDERED: VANCOMYCIN 750MG IV in NS 250 ML IV SCH (14:00)
[2020-02-10] MEDS: albuterol 2.5 MG/3 ML nebule NEB PRN (15:36)
[2020-02-10] MEDS: FENTANYL-0.9 % NACL/PF 100 ML IV PRN (15:46)
[2020-02-10] MEDS ORDERED: heparin 1,000 units/ml 10ml inj HE ONE ×4 (16:35→17:00)
[2020-02-10] MEDS ORDERED: albumin (human) 25% 100ml IV 100 ML IV PRN (16:58)
[2020-02-10] MEDS ORDERED: epoetin 20,000 units/ml inj IV ONE (16:59)
--- NOTE | 2020-02-10 18:25 | NUR ---
Patient in room ICU 2043. I have received report from Ysabel NICOLAS and had the opportunity to ask questions and assume patient care. Patient intubated, awake and restless. Versed and fentanyl low due to reported low blood preasure, currently normal at 120's. Patient otherwise normal, answering yes/no correctly and other vitals WNL. Will continue to monitor patient.
[2020-02-10] MEDS: acetylcysteine 200 MG/ml 4ml vial INH SCH ×2 (19:45→22:50)
[2020-02-10] MEDS: ipratropium/albuterol 3ml nebule NEB SCH ×2 (19:45→22:50)
[2020-02-10] MEDS: insulin glargine (Lantus) pen - multi-dose SQ SCH (20:30)
[2020-02-10] MEDS: famotidine 20mg tablet OGT SCH (20:30)
[2020-02-11] VITALS (24 sets, daily range): BP systolic 82–135; BP diastolic 46–70
[2020-02-11] MEDS: mineral oil/petrolatum ophthal oint EACHEYE SCH ×4 (02:45→21:13)
--- NOTE | 2020-02-11 02:45 | NUR ---
Blood sugar at 236 after having been 83 six hours ago. Notified November. Order received to change level from 6 to 4, and to give 12 units of lantus. Total of 18 units of nutritional and correctional given. Will continue to monitor patient closely.
[2020-02-11] MEDS: acetylcysteine 200 MG/ml 4ml vial INH SCH ×6 (03:48→23:24)
[2020-02-11] MEDS: ipratropium/albuterol 3ml nebule NEB SCH ×6 (03:48→23:23)
[2020-02-11] MEDS: midazolam 100mg in NS 100ml 100 ML IV PRN (04:10)
[2020-02-11 04:51] LABS: ABG BASE EXCESS 6.1 mmol/L (-2.0-3.0); ABG HCO3 31.9 mmol/L (22.0-26.0); ABG OXYGEN SATURATION 92.3 % (95-98); ABG PCO2 (T) 51.2 mmHg (35.0-45.0); ABG PH (T) 7.411 (7.350-7.450); ABG PO2 (T) 63.4 mmHg (83-108); ALLEN'S TEST POSITIVE; FCOHb 0.4 % (0.5-1.5); FMetHb 0.1 % (0.3-1.12); FO2Hb 91.8 % (94-100); PATIENT TEMPERATURE 36.6; TOTAL HEMOGLOBIN 11.1 G/dl (14.0-17.9)
[2020-02-11 05:24] LABS: BASOPHILS % (AUTO) 0.1 % (0-1); EOSINOPHILS % (AUTO) 0.5 % (0-6); HEMATOCRIT 31.3 % (42.0-52.0); HEMOGLOBIN 10.8 g/dl (14.0-17.9); LYMPHOCYTES # (AUTO) 0.1 X10'3 (1.1-4.8); LYMPHOCYTES % (AUTO) 3.4 % (21-51); MEAN CORPUSCULAR HGB CONC 34.4 g/dL (33.0-36.5); MEAN PLATELET VOLUME 11.1 FL (7.4-10.4); MONOCYTES # (AUTO) 0.2 X10'3 (0-0.9); MONOCYTES % (AUTO) 4.9 % (2-12); NEUTROPHILS # (AUTO) 2.8 X10'3 (1.8-7.7); NEUTROPHILS % (AUTO) 91.1 % (42-75); RED BLOOD COUNT 3.37 X10'6 (4.70-6.10); RED CELL DISTRIBUTION WIDTH 16.3 % (11.5-14.5); WHITE BLOOD COUNT 3.1 X10'3 (4.5-11.0)
[2020-02-11 05:44] LABS: ALANINE AMINOTRANSFERASE 51 U/L (12-78); ALBUMIN 1.8 G/DL (3.4-5.0); ALBUMIN/GLOBULIN RATIO 0.5 (1.1-1.5); ALKALINE PHOSPHATASE 158 IU/L (46-116); AMYLASE 34 U/L (25-115); ANION GAP 11 (8-16); ASPARTATE AMINO TRANSFERASE 51 U/L (10-37); BILIRUBIN,TOTAL 0.4 MG/DL (0.1-1.0); CHLORIDE 104 MMOL/L (99-107); CREATININE 3.86 MG/DL (0.60-1.10); GLUCOSE 253 MG/DL (70-104); LIPASE 72 U/L (73-393); MAGNESIUM 2.6 MG/DL (1.5-2.4); PHOSPHORUS 4.2 MG/DL (2.3-4.5); POTASSIUM 4.5 MMOL/L (3.5-5.1); SODIUM 143 MMOL/L (135-145); TOTAL CARBON DIOXIDE 27.9 MMOL/L (24-32); TOTAL PROTEIN 5.1 G/DL (6.4-8.2); TRIGLYCERIDES 28 MG/DL (20-135); eGFR 16 ML/MIN
[2020-02-11 05:48] LABS: BLOOD UREA NITROGEN 163 MG/DL (7-18); BUN/CREATININE RATIO 42.2 (5.4-32.0)
[2020-02-11 06:10] LABS: PLATELET COUNT 30 X10'3 (140-440)
[2020-02-11 06:12] LABS: LARGE PLATELETS FEW; PLATELET ESTIMATE DECREASED
--- NOTE | 2020-02-11 06:33 | NUR ---
Problems reprioritized. Patient report given, questions answered & plan of care reviewed with Rachana NICOLAS.
[2020-02-11] MEDS: budesonide 0.5mg/2ml UD nebule IH SCH ×2 (07:13→19:32)
[2020-02-11] MEDS ORDERED: normal saline 1000ml 250 ML IV PRN (08:00)
[2020-02-11] MEDS: amLODIPine 5mg tablet OGT SCH (08:00)
[2020-02-11] MEDS: K, MAG and/or Phos replacement - Verify level? MC SCH (08:00)
[2020-02-11] MEDS: lactobacillus rhamnosus 10,000 MMU CELLS/CAPSULE OGT SCH ×2 (08:04→21:13)
[2020-02-11] MEDS: furosemide 20 MG/2 ML vial IV SCH ×2 (08:04→20:00)
[2020-02-11] MEDS: CEFEPIME 2gm in D5W 50mL 50 ML IV SCH ×2 (08:04→21:13)
[2020-02-11] MEDS: pregabalin 25mg capsule OGT SCH ×2 (08:04→21:13)
[2020-02-11] MEDS: methylPREDNISolone sod succ/PF 40mg inj. IV SCH ×2 (08:04→21:12)
[2020-02-11] MEDS: sennosides 8.6mg tablet OGT SCH ×2 (08:04→21:16)
[2020-02-11] MEDS: simethicone 80mg chew tab OGT SCH ×2 (08:04→15:27)
[2020-02-11] MEDS: docusate sodium 100mg/10ml UD cup OGT SCH (08:04)
[2020-02-11] MEDS: famotidine 20mg tablet OGT SCH ×2 (08:04→21:13)
[2020-02-11] MEDS: nicotine 14mg patch - 24hr TD SCH (08:05)
[2020-02-11] MEDS: NYSTATIN CREAM - 30GM TUBE TP SCH ×2 (08:05→21:13)
[2020-02-11] MEDS: insulin regular, human U-100 3ml vial - multi-dose SQ SCH ×3 (08:25→21:44)
[2020-02-11] MEDS: amiodarone inj. 450 MG in dextrose 5%-water 250 ML IV SCH ×2 (11:34→18:04)
[2020-02-11] MEDS: albuterol 2.5 MG/3 ML nebule NEB PRN (11:40)
--- NOTE | 2020-02-11 11:50 | NUR ---
Pt went into afib w/ RVR during dialysis. 100cc of 25% albumin administered, director of real estate stopped taking fluid off, and amio gtt started per Dr. Claire
[2020-02-11] MEDS ORDERED: metoprolol tartrate 1mg/ml inj IV ONE (15:20)
--- NOTE | 2020-02-11 18:25 | NUR ---
Patient in room ICU 2043. I have received report from Sejal NICOLAS and had the opportunity to ask questions and assume patient care. Patient sleepy and hot, wakes up and nods head yes/no for questions, but goes back to sleep instantly. HR still currently up to 140s in new afib RVR. Amiodarone still currently infusing at second rate. Will continue to monitor patient.
[2020-02-11] MEDS: FENTANYL-0.9 % NACL/PF 100 ML IV PRN (19:38)
[2020-02-11] MEDS ORDERED: metoprolol tartrate 25mg tablet PO SCH (20:00)
[2020-02-11] MEDS: insulin glargine (Lantus) pen - multi-dose SQ SCH (21:45)
[2020-02-12] VITALS (24 sets, daily range): BP systolic 92–156; BP diastolic 45–76
[2020-02-12] MEDS: simethicone 80mg chew tab OGT SCH ×3 (00:01→15:46)
[2020-02-12] MEDS: amiodarone inj. 450 MG in dextrose 5%-water 250 ML IV SCH ×3 (00:28→18:00)
[2020-02-12] MEDS: insulin regular, human U-100 3ml vial - multi-dose SQ SCH ×4 (02:58→22:11)
[2020-02-12] MEDS: mineral oil/petrolatum ophthal oint EACHEYE SCH ×4 (02:59→22:08)
[2020-02-12] MEDS: ipratropium/albuterol 3ml nebule NEB SCH ×6 (03:17→23:00)
[2020-02-12] MEDS: acetylcysteine 200 MG/ml 4ml vial INH SCH ×6 (03:17→23:17)
[2020-02-12] MEDS: midazolam 100mg in NS 100ml 100 ML IV PRN (03:20)
[2020-02-12 04:01] LABS: ABG BASE EXCESS -2.8 mmol/L (-2.0-3.0); ABG HCO3 20.5 mmol/L (22.0-26.0); ABG PCO2 (T) 29.7 mmHg (35.0-45.0); ABG PH (T) 7.456 (7.350-7.450); ABG PO2 (T) 73.4 mmHg (83-108); ALLEN'S TEST POSITIVE; FCOHb 0.3 % (0.5-1.5); FMetHb 0.3 % (0.3-1.12); FO2Hb 93.4 % (94-100); PATIENT TEMPERATURE 36.6; TOTAL HEMOGLOBIN 9.6 G/dl (14.0-17.9)
[2020-02-12 05:08] LABS: BASOPHILS % (AUTO) 0.2 % (0-1); EOSINOPHILS % (AUTO) 1.3 % (0-6); HEMATOCRIT 28.3 % (42.0-52.0); HEMOGLOBIN 9.6 g/dl (14.0-17.9); LYMPHOCYTES # (AUTO) 0.2 X10'3 (1.1-4.8); LYMPHOCYTES % (AUTO) 5.4 % (21-51); MEAN CORPUSCULAR HEMOGLOBIN 31.8 PG (27.0-31.0); MEAN CORPUSCULAR HGB CONC 33.9 g/dL (33.0-36.5); MEAN PLATELET VOLUME 10.6 FL (7.4-10.4); MONOCYTES # (AUTO) 0.2 X10'3 (0-0.9); MONOCYTES % (AUTO) 5.7 % (2-12); NEUTROPHILS # (AUTO) 2.5 X10'3 (1.8-7.7); NEUTROPHILS % (AUTO) 87.4 % (42-75); RED BLOOD COUNT 3.01 X10'6 (4.70-6.10); RED CELL DISTRIBUTION WIDTH 16.6 % (11.5-14.5); WHITE BLOOD COUNT 2.9 X10'3 (4.5-11.0)
[2020-02-12 05:18] LABS: PLATELET COUNT 38 X10'3 (140-440)
[2020-02-12 05:31] LABS: ALANINE AMINOTRANSFERASE 43 U/L (12-78); ALBUMIN 2.1 G/DL (3.4-5.0); ALBUMIN/GLOBULIN RATIO 0.7 (1.1-1.5); ALKALINE PHOSPHATASE 135 IU/L (46-116); ANION GAP 9 (8-16); ASPARTATE AMINO TRANSFERASE 36 U/L (10-37); BILIRUBIN,TOTAL 0.4 MG/DL (0.1-1.0); BLOOD UREA NITROGEN 117 MG/DL (7-18); BUN/CREATININE RATIO 32.8 (5.4-32.0); CALCIUM 8.1 MG/DL (8.5-10.1); CHLORIDE 101 MMOL/L (99-107); CREATININE 3.57 MG/DL (0.60-1.10); GLUCOSE 219 MG/DL (70-104); MAGNESIUM 2.5 MG/DL (1.5-2.4); PHOSPHORUS 4.3 MG/DL (2.3-4.5); POTASSIUM 4.5 MMOL/L (3.5-5.1); SODIUM 138 MMOL/L (135-145); TOTAL CARBON DIOXIDE 28.5 MMOL/L (24-32); TOTAL PROTEIN 5.2 G/DL (6.4-8.2); eGFR 17 ML/MIN
[2020-02-12 06:09] LABS: HBSAG SCREEN Negative (Negative)
--- NOTE | 2020-02-12 06:30 | NUR ---
Patient in room ICU 2043. I have received report from MARIA ISABEL Tejada and had the opportunity to ask questions and assume patient care.
--- NOTE | 2020-02-12 06:31 | NUR ---
Problems reprioritized. Patient report given, questions answered & plan of care reviewed with Jodi and Reyna RNs.
[2020-02-12] MEDS: budesonide 0.5mg/2ml UD nebule IH SCH ×2 (07:25→19:13)
[2020-02-12] MEDS ORDERED: albumin (human) 25% 100ml IV 100 ML IV PRN (08:00)
[2020-02-12] MEDS ORDERED: normal saline 1000ml 250 ML IV PRN (08:00)
[2020-02-12] MEDS ORDERED: heparin 1,000unit/ml 10ml vial 10 ML IV ONE (08:00)
[2020-02-12] MEDS: K, MAG and/or Phos replacement - Verify level? MC SCH (08:00)
[2020-02-12] MEDS ORDERED: heparin 1,000 units/ml 10ml inj HE ONE ×2 (08:00)
[2020-02-12 08:04] LABS: ANISOCYTOSIS 1+; PLATELET ESTIMATE DECREASED; TOTAL CELLS COUNTED 100
[2020-02-12] MEDS: pregabalin 25mg capsule OGT SCH ×2 (08:09→22:08)
[2020-02-12] MEDS: docusate sodium 100mg/10ml UD cup OGT SCH (08:11)
[2020-02-12] MEDS: lactobacillus rhamnosus 10,000 MMU CELLS/CAPSULE OGT SCH ×2 (08:11→22:09)
[2020-02-12] MEDS: sennosides 8.6mg tablet OGT SCH ×2 (08:11→22:08)
[2020-02-12] MEDS: CEFEPIME 2gm in D5W 50mL 50 ML IV SCH ×2 (08:11→22:08)
[2020-02-12] MEDS: famotidine 20mg tablet OGT SCH ×2 (08:11→22:08)
[2020-02-12] MEDS: nicotine 14mg patch - 24hr TD SCH (08:12)
[2020-02-12] MEDS: NYSTATIN CREAM - 30GM TUBE TP SCH ×2 (08:13→22:09)
[2020-02-12] MEDS: methylPREDNISolone sod succ/PF 40mg inj. IV SCH ×2 (08:29→22:08)
--- NOTE | 2020-02-12 15:10 | NUR ---
Pt extubated to 3L with RT and RN present, tolerated very well. Talking and responding to questions appropriately. C/O of no pain but dry mouth. Addendum: 02/12/20 at 1521 by Stefanie Whitehead RN INCORRECT PATIENT - PLEASE IGNORE NOTE
--- NOTE | 2020-02-12 17:21 | NUR ---
Patient arrived on PCU and was helped to bed. Patient oriented to room and VS obtained, skin check done, assessment done, and call light within reach. Patient is requesting that he be able to go to the bathroom, will check PT notes. Patient has skin issue on penis that he says is from sex and is going to have radiation done on. Will continue to monitor. Addendum: 02/12/20 at 1733 by Rebecca Magaña RN Wrong Patient.
[2020-02-12] MEDS: FENTANYL-0.9 % NACL/PF 100 ML IV PRN (17:41)
--- NOTE | 2020-02-12 18:05 | NUR ---
Problems reprioritized. Patient report given, questions answered & plan of care reviewed with oncoming shift.
--- NOTE | 2020-02-12 18:30 | NUR ---
Problems reprioritized. Patient report given, questions answered & plan of care reviewed with dylon holder.
--- NOTE | 2020-02-12 18:30 | NUR ---
Patient in room ICU 2043. I have received report from Hanh NICOLAS, and had the opportunity to ask questions and assume patient care.
[2020-02-12] MEDS: NORepinephrine 8mg/ 250ml NS 250 ML IV SCH (18:35)
[2020-02-12] MEDS: albuterol 2.5 MG/3 ML nebule NEB PRN ×2 (19:13→23:16)
[2020-02-12] MEDS: insulin glargine (Lantus) pen - multi-dose SQ SCH (22:13)
--- NOTE | 2020-02-12 22:15 | NUR ---
Gastric residuals were 380ml, 300ml returned and TF continued per Protocol. Will continue to monitor.
[2020-02-13] VITALS (27 sets, daily range): BP systolic 76–190; BP diastolic 34–89
[2020-02-13] MEDS: simethicone 80mg chew tab OGT SCH ×3 (00:28→16:19)
--- NOTE | 2020-02-13 00:52 | NUR ---
Gastris residuals were 550 @ 0000 check. 300ml returned per protocol and TF placed on hold for 2hrs. Will recheck residuals after the 2 hrs and continue to monitor.
[2020-02-13 02:50] LABS: BASOPHILS % (AUTO) 0.1 % (0-1); EOSINOPHILS % (AUTO) 0.5 % (0-6); HEMATOCRIT 29.1 % (42.0-52.0); LYMPHOCYTES # (AUTO) 0.1 X10'3 (1.1-4.8); LYMPHOCYTES % (AUTO) 2.6 % (21-51); MEAN CORPUSCULAR HEMOGLOBIN 32.1 PG (27.0-31.0); MEAN CORPUSCULAR HGB CONC 34.3 g/dL (33.0-36.5); MEAN CORPUSCULAR VOLUME 93.7 FL (78-98); MEAN PLATELET VOLUME 10.9 FL (7.4-10.4); MONOCYTES # (AUTO) 0.2 X10'3 (0-0.9); MONOCYTES % (AUTO) 5.3 % (2-12); NEUTROPHILS # (AUTO) 4.2 X10'3 (1.8-7.7); NEUTROPHILS % (AUTO) 91.5 % (42-75); RED BLOOD COUNT 3.11 X10'6 (4.70-6.10); RED CELL DISTRIBUTION WIDTH 16.4 % (11.5-14.5); WHITE BLOOD COUNT 4.6 X10'3 (4.5-11.0)
[2020-02-13 02:59] LABS: ALANINE AMINOTRANSFERASE 44 U/L (12-78); ALBUMIN 2.1 G/DL (3.4-5.0); ALBUMIN/GLOBULIN RATIO 0.7 (1.1-1.5); ALKALINE PHOSPHATASE 135 IU/L (46-116); ANION GAP 8 (8-16); ASPARTATE AMINO TRANSFERASE 30 U/L (10-37); BILIRUBIN,TOTAL 0.5 MG/DL (0.1-1.0); BLOOD UREA NITROGEN 79 MG/DL (7-18); BUN/CREATININE RATIO 27.7 (5.4-32.0); CALCIUM 8.4 MG/DL (8.5-10.1); CHLORIDE 102 MMOL/L (99-107); CREATININE 2.85 MG/DL (0.60-1.10); GLUCOSE 193 MG/DL (70-104); MAGNESIUM 2.2 MG/DL (1.5-2.4); PHOSPHORUS 3.5 MG/DL (2.3-4.5); POTASSIUM 4.4 MMOL/L (3.5-5.1); PREALBUMIN 35.8 MG/DL (19-36); SODIUM 140 MMOL/L (135-145); TOTAL CARBON DIOXIDE 30.1 MMOL/L (24-32); TOTAL PROTEIN 5.2 G/DL (6.4-8.2); eGFR 22 ML/MIN
--- NOTE | 2020-02-13 03:00 | NUR ---
Recheck gastric residuals after TF had been off for 2 hrs, residuals were 375ml. 300ml returned and TF continues to be on hold for an additional 2 hrs. Will recheck and continue to monitor.
[2020-02-13 03:04] LABS: PLATELET COUNT 44 X10'3 (140-440)
[2020-02-13] MEDS: acetylcysteine 200 MG/ml 4ml vial INH SCH ×4 (03:17→15:07)
[2020-02-13] MEDS: ipratropium/albuterol 3ml nebule NEB SCH ×5 (03:17→19:46)
[2020-02-13] MEDS: mineral oil/petrolatum ophthal oint EACHEYE SCH ×4 (03:31→19:54)
[2020-02-13] MEDS: insulin regular, human U-100 3ml vial - multi-dose SQ SCH ×4 (03:32→20:18)
[2020-02-13 03:50] LABS: PLATELET ESTIMATE DECREASED
[2020-02-13] MEDS: amiodarone inj. 450 MG in dextrose 5%-water 250 ML IV SCH ×2 (05:15→07:47)
[2020-02-13] MEDS: midazolam 100mg in NS 100ml 100 ML IV PRN (05:16)
--- NOTE | 2020-02-13 05:56 | NUR ---
Gastric Residuals 260ml. TF restarted. Will continue to monitor.
--- NOTE | 2020-02-13 06:38 | NUR ---
Problems reprioritized. Patient report given, questions answered & plan of care reviewed with Arabella NICOLAS.
[2020-02-13] MEDS: budesonide 0.5mg/2ml UD nebule IH SCH ×2 (07:29→19:46)
[2020-02-13] MEDS: K, MAG and/or Phos replacement - Verify level? MC SCH (08:00)
[2020-02-13] MEDS: NORepinephrine 8mg/ 250ml NS 250 ML IV SCH ×2 (08:46→16:58)
[2020-02-13] MEDS: pregabalin 25mg capsule OGT SCH ×2 (08:47→19:54)
[2020-02-13] MEDS: lactobacillus rhamnosus 10,000 MMU CELLS/CAPSULE OGT SCH ×2 (08:47→19:54)
[2020-02-13] MEDS: docusate sodium 100mg/10ml UD cup OGT SCH (08:47)
[2020-02-13] MEDS: famotidine 20mg tablet OGT SCH ×2 (08:47→19:53)
[2020-02-13] MEDS: methylPREDNISolone sod succ/PF 40mg inj. IV SCH ×2 (08:48→19:53)
[2020-02-13] MEDS: NYSTATIN CREAM - 30GM TUBE TP SCH ×2 (08:48→19:54)
[2020-02-13] MEDS: sennosides 8.6mg tablet OGT SCH ×2 (08:48→19:53)
[2020-02-13] MEDS: nicotine 14mg patch - 24hr TD SCH (08:48)
[2020-02-13] MEDS: CEFEPIME 2gm in D5W 50mL 50 ML IV SCH ×2 (08:49→19:53)
--- NOTE | 2020-02-13 10:06 | NUR ---
SBP this AM in the 70's. Amiodarone, Fentanyl, and Versed paused and Levophed started at 0.1 mcg. SBP increased to the 160's. Pt on Levophed for ~1hr. BP stabilized then Levophed turned off and Amio, Fentanyl, and Versed restarted. VS stable at this time. Platelets 44 this AM, hold Lovenox for today per Dr. Claire. When asked if MD wanted a hold parameter for platelets to give Lovenox MD stated will check day by day. Amiodarone PO ordered and gtt ordered to stop. Will administer PO then stop gtt.
[2020-02-13] MEDS: enoxaparin 30mg/0.3ml syringe SUBCUT SCH (10:12)
[2020-02-13] MEDS: amiodarone 200mg tablet PO SCH ×2 (11:40→19:53)
--- NOTE | 2020-02-13 12:01 | NUR ---
Reassessment: Pt TF currently on hold for GRV 550ml LBM 02/07 receiving senna, probiotic, and colace. STEVAN d/w RN regarding opioid antagonist per MD approval since receiving fentanyl and midazolam. PALB 35.8 WNL. Will continue to monitor for additional bowel care needs. Rec: 1. EN per MD using Vital AF at 80ml/hr goal; to provide 1920ml fluid, 2304 kcals, 1555ml free water, and 144g protein. Initiate at 40ml/hr since tolerating Nepro at 20ml/hr and advance 20ml Q8 to goal as tolerated. 2. water flush 50ml Q6H per survey interviewer 3. PALB Q /; daily wts 4. routine bowel care; consider opioid antagonist given no BM 5 days and receiving opioids IF MD is agreeable 5. upon extubation; advance diet as medically indicated to carb controlled/heart healthy 6. DM ed once stable following extubation Addendum: 02/13/20 at [address] Amended: Links added.
[2020-02-13] MEDS ORDERED: VANCOMYCIN LEVEL IV ONE (13:30)
[2020-02-13] MEDS ORDERED: heparin 1,000unit/ml 10ml vial 10 ML IV ONE (13:37)
[2020-02-13] MEDS ORDERED: normal saline 1000ml 250 ML IV PRN (13:37)
[2020-02-13] MEDS ORDERED: epoetin 20,000 units/ml inj IV ONE (13:40)
[2020-02-13] MEDS ORDERED: heparin 1,000 units/ml 10ml inj IV ONE (13:40)
[2020-02-13] MEDS ORDERED: albumin (human) 25% 100ml IV 100 ML IV PRN (13:40)
[2020-02-13] MEDS ORDERED: heparin 1,000 units/ml 10ml inj HE ONE ×2 (13:45)
[2020-02-13] MEDS ORDERED: methylnaltrexone br 12mg/0.6ml inj***SubQ only SQ ONE (16:00)
[2020-02-13] MEDS: FENTANYL-0.9 % NACL/PF 100 ML IV PRN (16:14)
--- NOTE | 2020-02-13 17:18 | NUR ---
BP stable throughout the day after being on Levophed this AM for ~1hr. SBP in the 80's just before osteopathic physician started HD. Per Dr. Claire, run Levophed at this time while pt is on HD. Levophed started @ 0.1 with good result. pt tolerating well. Addendum: 02/13/20 at 1728 by Danni Helms RN Breathing has been stable throughout the day. pt maintaining on A/C PRVC on the vent @ 45% FiO2 for most of the shift. Moderate amt of oral secretions suctioned throughout the day, scant amt of OF secretions. Relistor ordered and given x1 to promote BM, last BM 02/08/20. BG stable on tube feeds, pt remaining on level 5. Moderate to large amt of residual assessed from TF. Largest amt 550mL. TF held for 2hrs at that time and returned 300ml to pt per protocol and recheck residual ~200ml. Afternoon residual 400ml, returned 300ml to pt and will recheck within the hour per protocol.
--- NOTE | 2020-02-13 17:56 | NUR ---
second TF residual check 400ml. per protocol, returned 300ml and flushed with 30ml and continue TF. Pt hasn't had BM since 02/08/20. Relistor already administered per protocol suggestion. awaiting BM.
--- NOTE | 2020-02-13 17:59 | NUR ---
pts HR increased to [address], on HD. Levophed gtt running, adjusted dose from 0.1 to 0.05. Amio gtt d/c this AM and PO Amio started this AM. Dr. Claire made aware of pts current HR. Tried to get pt to cough by suctioning to help decrease HR without success. BP stable.
[2020-02-13] MEDS: insulin glargine (Lantus) pen - multi-dose SQ SCH (20:20)
[2020-02-13] MEDS ORDERED: amiodarone 150mg/dext, iso-os 100 ML IV ONE (22:05)
--- NOTE | 2020-02-13 22:05 | NUR ---
RN Note -MD Communication Called Zeeshan Sutton regarding pt's persistent sinus tachycardia. Received order for Amiodarone loading dose
[2020-02-14] VITALS (24 sets, daily range): BP systolic 86–147; BP diastolic 41–72
--- NOTE | 2020-02-14 01:30 | NUR ---
RN Note -MD Communication Called Zeeshan Sutton regarding pt's heart rate dropped slightly but went back up into 140s. Received order to restart amiodarone drip
[2020-02-14] MEDS: mineral oil/petrolatum ophthal oint EACHEYE SCH ×4 (02:00→20:45)
[2020-02-14] MEDS: insulin regular, human U-100 3ml vial - multi-dose SQ SCH ×3 (04:12→21:20)
[2020-02-14] MEDS: amiodarone inj. 450 MG in dextrose 5%-water 250 ML IV SCH ×2 (04:13→16:45)
[2020-02-14 04:14] LABS: BASOPHILS % (AUTO) 0.1 % (0-1); EOSINOPHILS % (AUTO) 0.2 % (0-6); HEMATOCRIT 29.3 % (42.0-52.0); HEMOGLOBIN 10.1 g/dl (14.0-17.9); LYMPHOCYTES # (AUTO) 0.2 X10'3 (1.1-4.8); LYMPHOCYTES % (AUTO) 2.8 % (21-51); MEAN CORPUSCULAR HEMOGLOBIN 32.4 PG (27.0-31.0); MEAN CORPUSCULAR HGB CONC 34.4 g/dL (33.0-36.5); MEAN CORPUSCULAR VOLUME 94.3 FL (78-98); MEAN PLATELET VOLUME 10.6 FL (7.4-10.4); MONOCYTES # (AUTO) 0.4 X10'3 (0-0.9); MONOCYTES % (AUTO) 5.7 % (2-12); NEUTROPHILS # (AUTO) 6.5 X10'3 (1.8-7.7); NEUTROPHILS % (AUTO) 91.2 % (42-75); PLATELET COUNT 63 X10'3 (140-440); RED BLOOD COUNT 3.11 X10'6 (4.70-6.10); RED CELL DISTRIBUTION WIDTH 16.6 % (11.5-14.5); WHITE BLOOD COUNT 7.2 X10'3 (4.5-11.0)
[2020-02-14 04:16] LABS: ABG BASE EXCESS 0.1 mmol/L (-2.0-3.0); ABG HCO3 24.1 mmol/L (22.0-26.0); ABG OXYGEN SATURATION 96.2 % (95-98); ABG PCO2 (T) 37.7 mmHg (35.0-45.0); ABG PH (T) 7.426 (7.350-7.450); ABG PO2 (T) 86.8 mmHg (83-108); ALLEN'S TEST POSITIVE; FCOHb 0.3 % (0.5-1.5); FMetHb 0.2 % (0.3-1.12); FO2Hb 95.7 % (94-100); PATIENT TEMPERATURE 37.7; PEEP 5 cm H2O; RESPIRATORY RATE 14 b/min; TIDAL VOLUME 500 mL; TOTAL HEMOGLOBIN 11.3 G/dl (14.0-17.9)
[2020-02-14 04:23] LABS: ALANINE AMINOTRANSFERASE 43 U/L (12-78); ALBUMIN 1.9 G/DL (3.4-5.0); ALBUMIN/GLOBULIN RATIO 0.6 (1.1-1.5); ALKALINE PHOSPHATASE 140 IU/L (46-116); ANION GAP 5 (8-16); ASPARTATE AMINO TRANSFERASE 29 U/L (10-37); BILIRUBIN,TOTAL 0.5 MG/DL (0.1-1.0); BLOOD UREA NITROGEN 52 MG/DL (7-18); BUN/CREATININE RATIO 20.7 (5.4-32.0); CHLORIDE 103 MMOL/L (99-107); CREATININE 2.51 MG/DL (0.60-1.10); GLUCOSE 172 MG/DL (70-104); MAGNESIUM 2.2 MG/DL (1.5-2.4); PHOSPHORUS 4.4 MG/DL (2.3-4.5); POTASSIUM 4.3 MMOL/L (3.5-5.1); SODIUM 139 MMOL/L (135-145); TOTAL CARBON DIOXIDE 30.9 MMOL/L (24-32); eGFR 26 ML/MIN
[2020-02-14 04:35] LABS: PLATELET ESTIMATE DECREASED
[2020-02-14 04:39] LABS: LARGE PLATELETS FEW
--- NOTE | 2020-02-14 06:15 | NUR ---
Patient in room ICU 2043. I have received report from slot shift supervisor and had the opportunity to ask questions and assume patient care.
[2020-02-14] MEDS: ipratropium/albuterol 3ml nebule NEB SCH ×6 (07:00→23:13)
[2020-02-14] MEDS: simethicone 80mg chew tab OGT SCH ×3 (07:33→16:44)
[2020-02-14] MEDS: methylPREDNISolone sod succ/PF 40mg inj. IV SCH ×2 (07:33→20:45)
[2020-02-14] MEDS: docusate sodium 100mg/10ml UD cup OGT SCH (07:33)
[2020-02-14] MEDS: famotidine 20mg tablet OGT SCH ×2 (07:34→20:45)
[2020-02-14] MEDS: sennosides 8.6mg tablet OGT SCH ×2 (07:34→20:45)
[2020-02-14] MEDS: pregabalin 25mg capsule OGT SCH ×2 (07:34→20:45)
[2020-02-14] MEDS: lactobacillus rhamnosus 10,000 MMU CELLS/CAPSULE OGT SCH ×2 (07:34→20:59)
[2020-02-14] MEDS: CEFEPIME 2gm in D5W 50mL 50 ML IV SCH ×2 (07:36→20:45)
[2020-02-14] MEDS: nicotine 14mg patch - 24hr TD SCH (07:49)
[2020-02-14] MEDS: NYSTATIN CREAM - 30GM TUBE TP SCH ×2 (07:50→20:46)
[2020-02-14] MEDS: K, MAG and/or Phos replacement - Verify level? MC SCH (08:00)
[2020-02-14] MEDS: budesonide 0.5mg/2ml UD nebule IH SCH ×2 (08:02→19:03)
[2020-02-14] MEDS ORDERED: digoxin 250mcg/ml 2ml ampule IV ONE (10:05)
[2020-02-14] MEDS ORDERED: digoxin 250mcg/ml 2ml ampule ONE (10:08)
[2020-02-14] MEDS: enoxaparin 30mg/0.3ml syringe SUBCUT SCH (10:16)
--- NOTE | 2020-02-14 18:15 | NUR ---
Problems reprioritized. Patient report given, questions answered & plan of care reviewed with oncoming shift.
[2020-02-14] MEDS: midazolam 100mg in NS 100ml 100 ML IV PRN (20:58)
[2020-02-14] MEDS: FENTANYL-0.9 % NACL/PF 100 ML IV PRN (20:59)
[2020-02-14] MEDS: insulin glargine (Lantus) pen - multi-dose SQ SCH (21:22)
[2020-02-15] VITALS (24 sets, daily range): BP systolic 83–148; BP diastolic 39–79
[2020-02-15] MEDS: simethicone 80mg chew tab OGT SCH ×3 (00:19→16:00)
[2020-02-15] MEDS: mineral oil/petrolatum ophthal oint EACHEYE SCH ×4 (02:35→20:26)
[2020-02-15] MEDS: ipratropium/albuterol 3ml nebule NEB SCH ×6 (02:50→22:37)
[2020-02-15] MEDS: insulin regular, human U-100 3ml vial - multi-dose SQ SCH ×2 (03:13→08:40)
[2020-02-15 04:01] LABS: ABG BASE EXCESS -2.2 mmol/L (-2.0-3.0); ABG HCO3 21.5 mmol/L (22.0-26.0); ABG OXYGEN SATURATION 95.8 % (95-98); ABG PCO2 (T) 31.1 mmHg (35.0-45.0); ABG PH (T) 7.455 (7.350-7.450); ABG PO2 (T) 77.9 mmHg (83-108); ALLEN'S TEST POSITIVE; FCOHb 0.2 % (0.5-1.5); FMetHb 0.2 % (0.3-1.12); FO2Hb 95.4 % (94-100); PATIENT TEMPERATURE 36.4; PEEP 5 cm H2O; RESPIRATORY RATE 14 b/min; TIDAL VOLUME 500 mL; TOTAL HEMOGLOBIN 7.8 G/dl (14.0-17.9)
[2020-02-15 04:43] LABS: BASOPHILS % (AUTO) 0.3 % (0-1); EOSINOPHILS % (AUTO) 0.2 % (0-6); HEMATOCRIT 26.4 % (42.0-52.0); HEMOGLOBIN 8.8 g/dl (14.0-17.9); LYMPHOCYTES # (AUTO) 0.2 X10'3 (1.1-4.8); LYMPHOCYTES % (AUTO) 3.3 % (21-51); MEAN CORPUSCULAR HEMOGLOBIN 31.9 PG (27.0-31.0); MEAN CORPUSCULAR HGB CONC 33.5 g/dL (33.0-36.5); MEAN CORPUSCULAR VOLUME 95.4 FL (78-98); MEAN PLATELET VOLUME 10.9 FL (7.4-10.4); MONOCYTES # (AUTO) 0.1 X10'3 (0-0.9); MONOCYTES % (AUTO) 3.1 % (2-12); NEUTROPHILS # (AUTO) 4.3 X10'3 (1.8-7.7); NEUTROPHILS % (AUTO) 93.1 % (42-75); RED BLOOD COUNT 2.76 X10'6 (4.70-6.10); RED CELL DISTRIBUTION WIDTH 16.4 % (11.5-14.5); WHITE BLOOD COUNT 4.6 X10'3 (4.5-11.0)
[2020-02-15 04:54] LABS: ALANINE AMINOTRANSFERASE 60 U/L (12-78); ALBUMIN 1.8 G/DL (3.4-5.0); ALBUMIN/GLOBULIN RATIO 0.6 (1.1-1.5); ALKALINE PHOSPHATASE 151 IU/L (46-116); ANION GAP 6 (8-16); ASPARTATE AMINO TRANSFERASE 47 U/L (10-37); BILIRUBIN,TOTAL 0.4 MG/DL (0.1-1.0); BLOOD UREA NITROGEN 84 MG/DL (7-18); BUN/CREATININE RATIO 22.5 (5.4-32.0); CHLORIDE 101 MMOL/L (99-107); CREATININE 3.74 MG/DL (0.60-1.10); GLUCOSE 209 MG/DL (70-104); MAGNESIUM 2.4 MG/DL (1.5-2.4); PHOSPHORUS 4.3 MG/DL (2.3-4.5); POTASSIUM 4.7 MMOL/L (3.5-5.1); SODIUM 137 MMOL/L (135-145); TOTAL CARBON DIOXIDE 29.6 MMOL/L (24-32); TOTAL PROTEIN 4.7 G/DL (6.4-8.2); eGFR 16 ML/MIN
[2020-02-15 04:59] LABS: PLATELET COUNT 46 X10'3 (140-440)
--- NOTE | 2020-02-15 05:00 | NUR ---
RN Note -Bladder scanned pt; 247 ml reading. Straight cathed pt and got 50 ml out.
[2020-02-15] MEDS: amiodarone inj. 450 MG in dextrose 5%-water 250 ML IV SCH (05:26)
--- NOTE | 2020-02-15 06:15 | NUR ---
Patient in room ICU 2043. I have received report from restaurant shift leader and had the opportunity to ask questions and assume patient care.
[2020-02-15] MEDS: budesonide 0.5mg/2ml UD nebule IH SCH ×2 (07:00→22:37)
[2020-02-15] MEDS ORDERED: normal saline 1000ml 100 ML IV PRN (08:00)
[2020-02-15] MEDS ORDERED: normal saline 1000ml 250 ML IV PRN (08:00)
[2020-02-15] MEDS ORDERED: epoetin 20,000 units/ml inj IV ONE (08:00)
[2020-02-15] MEDS ORDERED: heparin 1,000 units/ml 10ml inj HE ONE ×2 (08:00)
[2020-02-15] MEDS: sennosides 8.6mg tablet OGT SCH ×3 (08:21→20:26)
[2020-02-15] MEDS: docusate sodium 100mg/10ml UD cup OGT SCH (08:21)
[2020-02-15] MEDS: enoxaparin 30mg/0.3ml syringe SUBCUT SCH (08:21)
[2020-02-15] MEDS: lactobacillus rhamnosus 10,000 MMU CELLS/CAPSULE OGT SCH ×2 (08:21→20:26)
[2020-02-15] MEDS: famotidine 20mg tablet OGT SCH ×2 (08:21→20:26)
[2020-02-15] MEDS: CEFEPIME 2gm in D5W 50mL 50 ML IV SCH ×2 (08:22→20:25)
[2020-02-15] MEDS: methylPREDNISolone sod succ/PF 40mg inj. IV SCH ×2 (08:22→20:26)
[2020-02-15] MEDS: pregabalin 25mg capsule OGT SCH ×2 (08:22→20:26)
[2020-02-15] MEDS: nicotine 14mg patch - 24hr TD SCH (08:22)
[2020-02-15] MEDS: NYSTATIN CREAM - 30GM TUBE TP SCH ×2 (08:23→20:26)
[2020-02-15] MEDS: NORepinephrine 8mg/ 250ml NS 250 ML IV SCH ×3 (08:33→14:49)
[2020-02-15] MEDS: K, MAG and/or Phos replacement - Verify level? MC SCH (08:33)
[2020-02-15] MEDS ORDERED: methylnaltrexone br 12mg/0.6ml inj***SubQ only SQ ONE (13:28)
[2020-02-15] MEDS ORDERED: NORepinephrine 8mg/ 250ml NS 250 ML IV ONE (14:32)
--- NOTE | 2020-02-15 18:05 | NUR ---
Problems reprioritized. Patient report given, questions answered & plan of care reviewed with oncoming shift.
[2020-02-15] MEDS ORDERED: amiodarone 150mg/dext, iso-os 100 ML IV ONE (18:40)
[2020-02-15 19:35] LABS: ALBUMIN 2.1 G/DL (3.4-5.0); ANION GAP 8 (8-16); BLOOD UREA NITROGEN 46 MG/DL (7-18); BUN/CREATININE RATIO 18.6 (5.4-32.0); CALCIUM 8.4 MG/DL (8.5-10.1); CHLORIDE 100 MMOL/L (99-107); CREATININE 2.47 MG/DL (0.60-1.10); GLUCOSE 173 MG/DL (70-104); MAGNESIUM 2.1 MG/DL (1.5-2.4); POTASSIUM 4.2 MMOL/L (3.5-5.1); SODIUM 136 MMOL/L (135-145); TOTAL CARBON DIOXIDE 28.5 MMOL/L (24-32); eGFR 26 ML/MIN
[2020-02-15] MEDS ORDERED: fentaNYL 50mcg/ml PF inj. 2,500 MCG in normal saline 250ml IV soln 200 ML IV PRN (20:30)
--- NOTE | 2020-02-15 20:50 | NUR ---
RN Note -MD Communication Zeeshan Sutton notified of blood in gastric residuals. Protonix ordered
[2020-02-15] MEDS: insulin glargine (Lantus) pen - multi-dose SQ SCH (21:27)
[2020-02-15 21:55] LABS: HEMATOCRIT 29.3 % (42.0-52.0); MEAN CORPUSCULAR HEMOGLOBIN 32.5 PG (27.0-31.0); MEAN CORPUSCULAR HGB CONC 34.1 g/dL (33.0-36.5); MEAN CORPUSCULAR VOLUME 95.4 FL (78-98); MEAN PLATELET VOLUME 10.3 FL (7.4-10.4); PLATELET COUNT 57 X10'3 (140-440); RED BLOOD COUNT 3.07 X10'6 (4.70-6.10); RED CELL DISTRIBUTION WIDTH 16.4 % (11.5-14.5); WHITE BLOOD COUNT 10.5 X10'3 (4.5-11.0)
[2020-02-16] VITALS (24 sets, daily range): BP systolic 94–138; BP diastolic 40–64
[2020-02-16] MEDS: simethicone 80mg chew tab OGT SCH ×3 (00:35→15:47)
[2020-02-16] MEDS: amiodarone inj. 450 MG in dextrose 5%-water 250 ML IV SCH ×3 (00:36→14:15)
[2020-02-16] MEDS: ipratropium/albuterol 3ml nebule NEB SCH ×6 (02:30→22:45)
[2020-02-16] MEDS: mineral oil/petrolatum ophthal oint EACHEYE SCH ×4 (03:20→20:31)
[2020-02-16] MEDS: insulin regular, human U-100 3ml vial - multi-dose SQ SCH ×4 (03:25→20:30)
[2020-02-16 05:22] LABS: BASOPHILS % (AUTO) 0.2 % (0-1); EOSINOPHILS % (AUTO) 0.1 % (0-6); HEMATOCRIT 24.9 % (42.0-52.0); HEMOGLOBIN 8.4 g/dl (14.0-17.9); LYMPHOCYTES # (AUTO) 0.1 X10'3 (1.1-4.8); LYMPHOCYTES % (AUTO) 2.5 % (21-51); MEAN CORPUSCULAR HEMOGLOBIN 32.2 PG (27.0-31.0); MEAN CORPUSCULAR HGB CONC 33.9 g/dL (33.0-36.5); MEAN CORPUSCULAR VOLUME 95.1 FL (78-98); MEAN PLATELET VOLUME 11.6 FL (7.4-10.4); MONOCYTES # (AUTO) 0.3 X10'3 (0-0.9); MONOCYTES % (AUTO) 4.7 % (2-12); NEUTROPHILS # (AUTO) 4.9 X10'3 (1.8-7.7); NEUTROPHILS % (AUTO) 92.5 % (42-75); RED BLOOD COUNT 2.62 X10'6 (4.70-6.10); RED CELL DISTRIBUTION WIDTH 16.9 % (11.5-14.5); WHITE BLOOD COUNT 5.3 X10'3 (4.5-11.0)
[2020-02-16 05:31] LABS: ABG BASE EXCESS 1.5 mmol/L (-2.0-3.0); ABG HCO3 25.5 mmol/L (22.0-26.0); ABG OXYGEN SATURATION 96.5 % (95-98); ABG PCO2 (T) 36.8 mmHg (35.0-45.0); ABG PH (T) 7.456 (7.350-7.450); ABG PO2 (T) 87.4 mmHg (83-108); ALLEN'S TEST POSITIVE; FCOHb 0.3 % (0.5-1.5); FMetHb 0.3 % (0.3-1.12); FO2Hb 95.9 % (94-100); PATIENT TEMPERATURE 36.4; PEEP 5 cm H2O; RESPIRATORY RATE 14 b/min; TIDAL VOLUME 500 mL; TOTAL HEMOGLOBIN 9.4 G/dl (14.0-17.9)
[2020-02-16 05:36] LABS: PLATELET COUNT 46 X10'3 (140-440)
[2020-02-16 05:47] LABS: ALANINE AMINOTRANSFERASE 53 U/L (12-78); ALBUMIN 1.6 G/DL (3.4-5.0); ALBUMIN/GLOBULIN RATIO 0.6 (1.1-1.5); ALKALINE PHOSPHATASE 133 IU/L (46-116); ANION GAP 5 (8-16); ASPARTATE AMINO TRANSFERASE 33 U/L (10-37); BILIRUBIN,TOTAL 0.4 MG/DL (0.1-1.0); BLOOD UREA NITROGEN 56 MG/DL (7-18); BUN/CREATININE RATIO 18.3 (5.4-32.0); CALCIUM 7.6 MG/DL (8.5-10.1); CHLORIDE 102 MMOL/L (99-107); CREATININE 3.06 MG/DL (0.60-1.10); GLUCOSE 221 MG/DL (70-104); MAGNESIUM 2.1 MG/DL (1.5-2.4); PHOSPHORUS 3.2 MG/DL (2.3-4.5); POTASSIUM 4.4 MMOL/L (3.5-5.1); SODIUM 136 MMOL/L (135-145); TOTAL CARBON DIOXIDE 29.1 MMOL/L (24-32); TOTAL PROTEIN 4.5 G/DL (6.4-8.2); eGFR 21 ML/MIN
--- NOTE | 2020-02-16 06:20 | NUR ---
Problems reprioritized. Patient report given, questions answered & plan of care reviewed with Ludmila NICOLAS.
[2020-02-16] MEDS: midazolam 100mg in NS 100ml 100 ML IV PRN (06:56)
[2020-02-16] MEDS: FENTANYL-0.9 % NACL/PF 100 ML IV PRN (06:57)
[2020-02-16] MEDS: budesonide 0.5mg/2ml UD nebule IH SCH ×2 (07:48→18:55)
[2020-02-16] MEDS: famotidine 20mg tablet OGT SCH ×2 (07:56→20:21)
[2020-02-16] MEDS: docusate sodium 100mg/10ml UD cup OGT SCH (07:56)
[2020-02-16] MEDS: sennosides 8.6mg tablet OGT SCH ×2 (07:56→20:21)
[2020-02-16] MEDS: pantoprazole 40 MG vial IV SCH (07:56)
[2020-02-16] MEDS: methylPREDNISolone sod succ/PF 40mg inj. IV SCH ×2 (07:56→20:19)
[2020-02-16] MEDS: pregabalin 25mg capsule OGT SCH ×2 (07:56→20:21)
[2020-02-16] MEDS: K, MAG and/or Phos replacement - Verify level? MC SCH (08:00)
[2020-02-16] MEDS: nicotine 14mg patch - 24hr TD SCH (08:01)
[2020-02-16] MEDS: lactobacillus rhamnosus 10,000 MMU CELLS/CAPSULE OGT SCH ×2 (08:07→20:21)
[2020-02-16] MEDS: NYSTATIN CREAM - 30GM TUBE TP SCH ×2 (08:11→20:26)
[2020-02-16] MEDS: CEFEPIME 2gm in D5W 50mL 50 ML IV SCH ×2 (08:17→20:12)
[2020-02-16] MEDS: enoxaparin 30mg/0.3ml syringe SUBCUT SCH (09:19)
--- NOTE | 2020-02-16 09:23 | NUR ---
Dr. Claire notified of drop in H/H and low platelets. Stated to give Lovenox.
[2020-02-16 10:15] LABS: BASOPHILS % (AUTO) 0 % (0-1); EOSINOPHILS % (AUTO) 0 % (0-6); HEMATOCRIT 26.2 % (42.0-52.0); HEMOGLOBIN 8.7 g/dl (14.0-17.9); LYMPHOCYTES # (AUTO) 0.1 X10'3 (1.1-4.8); LYMPHOCYTES % (AUTO) 2.5 % (21-51); MEAN CORPUSCULAR HEMOGLOBIN 31.8 PG (27.0-31.0); MEAN CORPUSCULAR HGB CONC 33.3 g/dL (33.0-36.5); MEAN CORPUSCULAR VOLUME 95.3 FL (78-98); MEAN PLATELET VOLUME 10.8 FL (7.4-10.4); MONOCYTES # (AUTO) 0.2 X10'3 (0-0.9); MONOCYTES % (AUTO) 4.5 % (2-12); NEUTROPHILS # (AUTO) 4.8 X10'3 (1.8-7.7); RED BLOOD COUNT 2.75 X10'6 (4.70-6.10); RED CELL DISTRIBUTION WIDTH 16.7 % (11.5-14.5); WHITE BLOOD COUNT 5.2 X10'3 (4.5-11.0)
[2020-02-16 10:22] LABS: PLATELET COUNT 45 X10'3 (140-440)
--- NOTE | 2020-02-16 11:25 | NUR ---
Maria Eugenia called to inquire on pt. status.
--- NOTE | 2020-02-16 15:46 | NUR ---
Reassessment: Pt TF on hold since 02/12. RN reports restarted at 20ml/hr today pending GRV. Pt no BM 8 days since 02/07 receiving colace, senna, and relistor to start tomorrow AM per EMR. RD d/w RN regarding promotility agent per MD approval. Constipation impacting TF tolerance. Will continue to monitor. Rec: 1. EN per MD using Vital AF at 80ml/hr goal; to provide 1920ml fluid, 2304 kcals, 1555ml free water, and 144g protein. Initiate at 40ml/hr since tolerating Nepro at 20ml/hr and advance 20ml Q8 to goal as tolerated. 2. water flush 50ml Q6H per adjunct philosophy faculty 3. PALB Q /; daily wts 4. routine bowel care; opioid antagonist per MD; consider promotility agent IF MD is agreeable; no BM 8 days 5. upon extubation; advance diet as medically indicated to carb controlled/heart healthy 6. DM ed once stable following extubation Addendum: 02/16/20 at [address] Amended: Links added.
--- NOTE | 2020-02-16 18:15 | NUR ---
Patient in room ICU 2043. I have received report from Ludmila NICOLAS and had the opportunity to ask questions and assume patient care. Patient in bed, intubated via endotracheal tube, vent at 35% Fio2, PEEP 5, spo2 at 99%, fentanyl drip and versed drip for pain control and sedation, will titrate per protocol, amiodarone drip infusing per provider orders, see IV spreadsheet, interventions and EMR for further information. All monitoring alarms audible. Will continue to monitor.
[2020-02-16] MEDS: insulin glargine (Lantus) pen - multi-dose SQ SCH (20:30)
[2020-02-16] MEDS: NORepinephrine 8mg/ 250ml NS 250 ML IV SCH (22:51)
[2020-02-17] VITALS (23 sets, daily range): BP systolic 93–137; BP diastolic 40–78
--- NOTE | 2020-02-17 | NUR ---
No change in condition.
[2020-02-17] MEDS: simethicone 80mg chew tab OGT SCH ×3 (00:09→16:32)
[2020-02-17] MEDS: midazolam 100mg in NS 100ml 100 ML IV PRN ×2 (00:09→16:46)
[2020-02-17] MEDS: FENTANYL-0.9 % NACL/PF 100 ML IV PRN ×3 (00:11→21:38)
[2020-02-17] MEDS: mineral oil/petrolatum ophthal oint EACHEYE SCH ×4 (02:02→20:44)
[2020-02-17] MEDS: insulin regular, human U-100 3ml vial - multi-dose SQ SCH ×4 (02:08→20:49)
[2020-02-17] MEDS: ipratropium/albuterol 3ml nebule NEB SCH ×6 (02:37→22:44)
[2020-02-17 04:20] LABS: ABG BASE EXCESS -1.1 mmol/L (-2.0-3.0); ABG HCO3 22.8 mmol/L (22.0-26.0); ABG OXYGEN SATURATION 95.9 % (95-98); ABG PCO2 (T) 32.9 mmHg (35.0-45.0); ABG PH (T) 7.453 (7.350-7.450); ABG PO2 (T) 78.2 mmHg (83-108); ALLEN'S TEST POSITIVE; FMetHb 0.1 % (0.3-1.12); FO2Hb 95.8 % (94-100); PATIENT TEMPERATURE 35.7; PEEP 5 cm H2O; RESPIRATORY RATE 14 b/min; TIDAL VOLUME 500 mL; TOTAL HEMOGLOBIN 9.8 G/dl (14.0-17.9)
--- NOTE | 2020-02-17 04:59 | NUR ---
Called Dio Sutton NP due to patients HR of 59bpm in sinus rhythm, QT now 0.47, was 0.43 at 1815, Amiodarone drip is now on hold.
--- NOTE | 2020-02-17 06:15 | NUR ---
Problems reprioritized. Patient report given, questions answered & plan of care reviewed with Ludmila NICOLAS.
[2020-02-17 06:36] LABS: ALANINE AMINOTRANSFERASE 44 U/L (12-78); ALBUMIN 1.6 G/DL (3.4-5.0); ALBUMIN/GLOBULIN RATIO 0.5 (1.1-1.5); ALKALINE PHOSPHATASE 131 IU/L (46-116); ANION GAP 11 (8-16); ASPARTATE AMINO TRANSFERASE 20 U/L (10-37); BILIRUBIN,TOTAL 0.4 MG/DL (0.1-1.0); BLOOD UREA NITROGEN 72 MG/DL (7-18); CALCIUM 7.9 MG/DL (8.5-10.1); CHLORIDE 99 MMOL/L (99-107); CREATININE 3.78 MG/DL (0.60-1.10); GLUCOSE 244 MG/DL (70-104); MAGNESIUM 2.2 MG/DL (1.5-2.4); PHOSPHORUS 4.8 MG/DL (2.3-4.5); POTASSIUM 4.8 MMOL/L (3.5-5.1); SODIUM 134 MMOL/L (135-145); TOTAL CARBON DIOXIDE 24.2 MMOL/L (24-32); TOTAL PROTEIN 4.7 G/DL (6.4-8.2); eGFR 16 ML/MIN
--- NOTE | 2020-02-17 06:41 | NUR ---
Patient in room ICU 2043. I have received report from Zahida NICOLAS and had the opportunity to ask questions and assume patient care. Addendum: 02/17/20 at 0641 by Ludmila Cuenca RN Amended: Links added.
[2020-02-17] MEDS: nicotine 14mg patch - 24hr TD SCH (07:15)
[2020-02-17] MEDS: docusate sodium 100mg/10ml UD cup OGT SCH (07:16)
[2020-02-17] MEDS: pantoprazole 40 MG vial IV SCH (07:16)
[2020-02-17] MEDS: methylPREDNISolone sod succ/PF 40mg inj. IV SCH ×2 (07:16→20:39)
[2020-02-17] MEDS: methylnaltrexone br 12mg/0.6ml inj***SubQ only SQ SCH (07:17)
[2020-02-17] MEDS: famotidine 20mg tablet OGT SCH ×2 (07:17→20:38)
[2020-02-17] MEDS: lactobacillus rhamnosus 10,000 MMU CELLS/CAPSULE OGT SCH ×2 (07:17→20:38)
[2020-02-17] MEDS: CEFEPIME 2gm in D5W 50mL 50 ML IV SCH ×2 (07:17→20:36)
[2020-02-17] MEDS: sennosides 8.6mg tablet OGT SCH ×2 (07:17→20:38)
[2020-02-17] MEDS: pregabalin 25mg capsule OGT SCH ×2 (07:17→20:38)
[2020-02-17] MEDS: enoxaparin 30mg/0.3ml syringe SUBCUT SCH (07:19)
[2020-02-17 07:22] LABS: EOSINOPHILS % (AUTO) 0.1 % (0-6); HEMOGLOBIN 9.8 g/dl (14.0-17.9); LYMPHOCYTES # (AUTO) 0.2 X10'3 (1.1-4.8); MONOCYTES # (AUTO) 0.3 X10'3 (0-0.9); NEUTROPHILS # (AUTO) 7.5 X10'3 (1.8-7.7)
[2020-02-17 07:23] LABS: BASOPHILS # (AUTO) 0.1 X10'3 (0-0.2); BASOPHILS % (AUTO) 0.7 % (0-1); LYMPHOCYTES % (AUTO) 2.4 % (21-51); MEAN CORPUSCULAR HGB CONC 33.6 g/dL (33.0-36.5); MEAN CORPUSCULAR VOLUME 95.3 FL (78-98); MEAN PLATELET VOLUME 10.1 FL (7.4-10.4); NEUTROPHILS % (AUTO) 92.8 % (42-75); RED BLOOD COUNT 3.05 X10'6 (4.70-6.10); RED CELL DISTRIBUTION WIDTH 16.3 % (11.5-14.5); WHITE BLOOD COUNT 8.1 X10'3 (4.5-11.0)
[2020-02-17 07:31] LABS: PLATELET COUNT 49 X10'3 (140-440)
[2020-02-17] MEDS: budesonide 0.5mg/2ml UD nebule IH SCH ×2 (07:32→18:35)
[2020-02-17] MEDS: NYSTATIN CREAM - 30GM TUBE TP SCH ×2 (07:36→20:39)
[2020-02-17] MEDS: K, MAG and/or Phos replacement - Verify level? MC SCH (07:37)
[2020-02-17] MEDS ORDERED: albumin (human) 25% 100ml IV 100 ML IV PRN (08:00)
[2020-02-17] MEDS ORDERED: heparin 1,000 units/ml 10ml inj HE ONE ×2 (08:00)
[2020-02-17] MEDS ORDERED: LIDOcaine 1% (10mg/ml) 2ml vial SQ ONE (08:00)
[2020-02-17] MEDS ORDERED: normal saline 1000ml 250 ML IV PRN (08:00)
[2020-02-17] MEDS ORDERED: heparin 1,000 units/ml 10ml inj IV ONE (08:00)
[2020-02-17] MEDS ORDERED: epoetin 20,000 units/ml inj IV ONE (08:00)
[2020-02-17] MEDS ORDERED: heparin 1,000unit/ml 10ml vial 10 ML IV ONE (08:00)
[2020-02-17] MEDS: amiodarone 100mg tablet PO SCH ×2 (09:58→20:38)
--- NOTE | 2020-02-17 10:13 | NUR ---
Sedation turned off to wake pt. up for SBTs. RT paged to let her know of plan.
--- NOTE | 2020-02-17 15:04 | NUR ---
HD getting started now.
[2020-02-17] MEDS ORDERED: amiodarone 150mg/dext, iso-os 100 ML IV ONE (16:25)
--- NOTE | 2020-02-17 16:33 | NUR ---
Rapid afib noted. Dr. Claire notified. Amio gtt ordered. Pt. approx. one hour into HD.
[2020-02-17] MEDS: amiodarone/D5 360MG/200ML BAG 200 ML IV SCH ×2 (16:57→23:03)
--- NOTE | 2020-02-17 17:27 | NUR ---
Amiodarone gtt infusing. BP 90/51, HR 120s-150.
--- NOTE | 2020-02-17 17:45 | NUR ---
Pt. appears to be trying to convert back to SR with HR 76 and SR a few moments ago. Now AFIB again in 130s.
--- NOTE | 2020-02-17 19:40 | NUR ---
Patient converted to sinus rhythm at 1937 from afib.
[2020-02-17] MEDS: insulin glargine (Lantus) pen - multi-dose SQ SCH (20:48)
[2020-02-18] VITALS (23 sets, daily range): BP systolic 96–164; BP diastolic 42–74
[2020-02-18] MEDS: simethicone 80mg chew tab OGT SCH ×3 (00:30→15:26)
[2020-02-18] MEDS: mineral oil/petrolatum ophthal oint EACHEYE SCH ×4 (02:22→21:06)
[2020-02-18] MEDS: insulin regular, human U-100 3ml vial - multi-dose SQ SCH ×4 (02:23→21:30)
[2020-02-18] MEDS: ipratropium/albuterol 3ml nebule NEB SCH ×6 (02:42→22:36)
[2020-02-18 03:56] LABS: ABG BASE EXCESS 1.1 mmol/L (-2.0-3.0); ABG HCO3 24.9 mmol/L (22.0-26.0); ABG OXYGEN SATURATION 93.9 % (95-98); ABG PH (T) 7.457 (7.350-7.450); ABG PO2 (T) 65.8 mmHg (83-108); ALLEN'S TEST POSITIVE; FCOHb 0.2 % (0.5-1.5); FO2Hb 93.7 % (94-100); PATIENT TEMPERATURE 36.5; PEEP 5 cm H2O; RESPIRATORY RATE 14 b/min; TIDAL VOLUME 500 mL; TOTAL HEMOGLOBIN 10.1 G/dl (14.0-17.9)
[2020-02-18] MEDS: amiodarone/D5 360MG/200ML BAG 200 ML IV SCH ×3 (04:33→10:46)
--- NOTE | 2020-02-18 06:30 | NUR ---
Patient in room ICU 2043. I have received report from Zahida NICOLAS and had the opportunity to ask questions and assume patient care. Addendum: 02/18/20 at 0630 by Ludmila Cuenca RN Amended: Links added.
[2020-02-18] MEDS: nicotine 14mg patch - 24hr TD SCH (07:26)
[2020-02-18] MEDS: pregabalin 25mg capsule OGT SCH ×2 (07:27→21:05)
[2020-02-18] MEDS: lactobacillus rhamnosus 10,000 MMU CELLS/CAPSULE OGT SCH ×2 (07:27→21:05)
[2020-02-18] MEDS: sennosides 8.6mg tablet OGT SCH ×2 (07:27→21:08)
[2020-02-18] MEDS: amiodarone 100mg tablet PO SCH ×2 (07:27→21:05)
[2020-02-18] MEDS: CEFEPIME 2gm in D5W 50mL 50 ML IV SCH ×2 (07:27→21:04)
[2020-02-18] MEDS: methylPREDNISolone sod succ/PF 40mg inj. IV SCH ×2 (07:27→21:04)
[2020-02-18] MEDS: enoxaparin 30mg/0.3ml syringe SUBCUT SCH (07:27)
[2020-02-18] MEDS: famotidine 20mg tablet OGT SCH ×2 (07:27→21:05)
[2020-02-18] MEDS: docusate sodium 100mg/10ml UD cup OGT SCH (07:27)
[2020-02-18] MEDS: pantoprazole 40 MG vial IV SCH (07:27)
[2020-02-18] MEDS: NYSTATIN CREAM - 30GM TUBE TP SCH ×2 (07:28→21:06)
[2020-02-18] MEDS: K, MAG and/or Phos replacement - Verify level? MC SCH (07:33)
[2020-02-18] MEDS: budesonide 0.5mg/2ml UD nebule IH SCH ×2 (07:58→19:02)
--- NOTE | 2020-02-18 09:45 | NUR ---
Dr. Claire updated on pt. status. RN spoke with pt's and brother the last two days and they wish to speak with Dr. Claire. Phone number provided to Dr. Claire. Notified of no BM since 02/07. Lactulose ordered.
[2020-02-18] MEDS: lactulose 20gm/30ml cup PO SCH ×2 (13:17→21:06)
[2020-02-18] MEDS: midazolam 100mg in NS 100ml 100 ML IV PRN (14:53)
--- NOTE | 2020-02-18 18:30 | NUR ---
Patient in room ICU 2043. I have received report from Gila NICOLAS and had the opportunity to ask questions and assume patient care.
[2020-02-18] MEDS: insulin glargine (Lantus) pen - multi-dose SQ SCH (21:31)
[2020-02-19] VITALS (24 sets, daily range): BP systolic 76–168; BP diastolic 30–95
--- NOTE | 2020-02-19 00:41 | NUR ---
Patient restless at times, scoots down to foot of the bed after repositioning. Sats maintained on 30%FiO2.
[2020-02-19] MEDS: simethicone 80mg chew tab OGT SCH ×3 (01:03→15:29)
[2020-02-19] MEDS: amiodarone/D5 360MG/200ML BAG 200 ML IV SCH ×4 (01:05→23:01)
[2020-02-19] MEDS: FENTANYL-0.9 % NACL/PF 100 ML IV PRN (01:06)
[2020-02-19] MEDS: mineral oil/petrolatum ophthal oint EACHEYE SCH ×4 (02:27→21:46)
[2020-02-19] MEDS: insulin regular, human U-100 3ml vial - multi-dose SQ SCH ×4 (02:30→21:58)
[2020-02-19] MEDS: ipratropium/albuterol 3ml nebule NEB SCH ×6 (02:40→23:00)
[2020-02-19 03:04] LABS: BASOPHILS % (AUTO) 0.2 % (0-1); EOSINOPHILS % (AUTO) 0.1 % (0-6); HEMATOCRIT 28.7 % (42.0-52.0); HEMOGLOBIN 9.6 g/dl (14.0-17.9); LYMPHOCYTES # (AUTO) 0.1 X10'3 (1.1-4.8); LYMPHOCYTES % (AUTO) 1.2 % (21-51); MEAN CORPUSCULAR HEMOGLOBIN 32.3 PG (27.0-31.0); MEAN CORPUSCULAR HGB CONC 33.6 g/dL (33.0-36.5); MEAN CORPUSCULAR VOLUME 96.2 FL (78-98); MONOCYTES # (AUTO) 0.3 X10'3 (0-0.9); MONOCYTES % (AUTO) 3.7 % (2-12); NEUTROPHILS # (AUTO) 8.7 X10'3 (1.8-7.7); NEUTROPHILS % (AUTO) 94.8 % (42-75); RED BLOOD COUNT 2.99 X10'6 (4.70-6.10); RED CELL DISTRIBUTION WIDTH 17.4 % (11.5-14.5); WHITE BLOOD COUNT 9.1 X10'3 (4.5-11.0)
[2020-02-19 03:12] LABS: PLATELET COUNT 40 X10'3 (140-440)
[2020-02-19 03:20] LABS: ALANINE AMINOTRANSFERASE 55 U/L (12-78); ALBUMIN 1.6 G/DL (3.4-5.0); ALBUMIN/GLOBULIN RATIO 0.5 (1.1-1.5); ALKALINE PHOSPHATASE 164 IU/L (46-116); ANION GAP 8 (8-16); ASPARTATE AMINO TRANSFERASE 34 U/L (10-37); BILIRUBIN,TOTAL 0.4 MG/DL (0.1-1.0); BLOOD UREA NITROGEN 65 MG/DL (7-18); BUN/CREATININE RATIO 18.9 (5.4-32.0); CALCIUM 7.5 MG/DL (8.5-10.1); CHLORIDE 98 MMOL/L (99-107); CREATININE 3.44 MG/DL (0.60-1.10); GLUCOSE 244 MG/DL (70-104); MAGNESIUM 2.1 MG/DL (1.5-2.4); SODIUM 132 MMOL/L (135-145); TOTAL CARBON DIOXIDE 26.4 MMOL/L (24-32); TOTAL PROTEIN 5.1 G/DL (6.4-8.2); eGFR 18 ML/MIN
[2020-02-19 03:45] LABS: PLATELET ESTIMATE DECREASED
[2020-02-19 03:51] LABS: ABG BASE EXCESS -0.4 mmol/L (-2.0-3.0); ABG HCO3 24.2 mmol/L (22.0-26.0); ABG OXYGEN SATURATION 94.5 % (95-98); ABG PCO2 (T) 38.2 mmHg (35.0-45.0); ABG PH (T) 7.416 (7.350-7.450); ABG PO2 (T) 68.5 mmHg (83-108); ALLEN'S TEST POSITIVE; FCOHb 0.4 % (0.5-1.5); FO2Hb 94.1 % (94-100); PATIENT TEMPERATURE 36.2; PEEP 5 cm H2O; RESPIRATORY RATE 14 b/min; TIDAL VOLUME 500 mL; TOTAL HEMOGLOBIN 10.6 G/dl (14.0-17.9)
--- NOTE | 2020-02-19 06:15 | NUR ---
Patient in room ICU 2043. I have received report from date night sitter and had the opportunity to ask questions and assume patient care.
--- NOTE | 2020-02-19 06:34 | NUR ---
Problems reprioritized. Patient report given, questions answered & plan of care reviewed with Arabella NICOLAS.
[2020-02-19] MEDS: budesonide 0.5mg/2ml UD nebule IH SCH ×2 (07:21→19:33)
[2020-02-19] MEDS ORDERED: epoetin 20,000 units/ml inj IV ONE (08:00)
[2020-02-19] MEDS ORDERED: heparin 1,000 units/ml 10ml inj HE ONE ×2 (08:00)
[2020-02-19] MEDS ORDERED: heparin 1,000unit/ml 10ml vial 10 ML IV ONE (08:00)
[2020-02-19] MEDS ORDERED: albumin (human) 25% 100ml IV 100 ML IV PRN (08:00)
[2020-02-19] MEDS ORDERED: normal saline 1000ml 250 ML IV PRN (08:00)
[2020-02-19] MEDS ORDERED: heparin 1,000 units/ml 10ml inj IV ONE (08:00)
[2020-02-19] MEDS: K, MAG and/or Phos replacement - Verify level? MC SCH (08:00)
[2020-02-19] MEDS: lactulose 20gm/30ml cup PO SCH ×3 (08:43→21:00)
[2020-02-19] MEDS: docusate sodium 100mg/10ml UD cup OGT SCH (08:43)
[2020-02-19] MEDS: pantoprazole 40 MG vial IV SCH (08:43)
[2020-02-19] MEDS: sennosides 8.6mg tablet OGT SCH ×2 (08:44→20:00)
[2020-02-19] MEDS: methylPREDNISolone sod succ/PF 40mg inj. IV SCH ×2 (08:44→21:46)
[2020-02-19] MEDS: nicotine 14mg patch - 24hr TD SCH (08:44)
[2020-02-19] MEDS: famotidine 20mg tablet OGT SCH ×2 (08:44→21:50)
[2020-02-19] MEDS: enoxaparin 30mg/0.3ml syringe SUBCUT SCH (08:44)
[2020-02-19] MEDS: NYSTATIN CREAM - 30GM TUBE TP SCH ×2 (08:44→20:00)
[2020-02-19] MEDS: amiodarone 100mg tablet PO SCH ×2 (08:44→21:47)
[2020-02-19] MEDS: pregabalin 25mg capsule OGT SCH ×2 (08:45→21:49)
[2020-02-19] MEDS: CEFEPIME 2gm in D5W 50mL 50 ML IV SCH ×2 (08:45→21:45)
[2020-02-19] MEDS: lactobacillus rhamnosus 10,000 MMU CELLS/CAPSULE OGT SCH ×2 (08:45→21:49)
[2020-02-19] MEDS: methylnaltrexone br 12mg/0.6ml inj***SubQ only SQ SCH (08:48)
--- NOTE | 2020-02-19 10:50 | NUR ---
Reassessment: Pt TF restarted and tolerating at goal GRV WNL. LBM 02/07 receiving routine colace, senna, relistor, lactulose. To receive HD today per MD note. STEVAN d/w RN regarding promotility agent per MD approval given constipation. Will continue to monitor for additional bowel care needs. Rec: 1. EN per MD using Vital AF at 80ml/hr goal; to provide 1920ml fluid, 2304 kcals, 1555ml free water, and 144g protein. Initiate at 40ml/hr since tolerating Nepro at 20ml/hr and advance 20ml Q8 to goal as tolerated. 2. water flush 50ml Q6H per renewable energy project manager 3. PALB Q /; daily wts 4. routine bowel care; opioid antagonist per MD; consider promotility agent IF MD is agreeable; no BM 11 days receiving opioids 5. upon extubation; advance diet as medically indicated to carb controlled/heart healthy 6. DM ed once stable following extubation Addendum: 02/19/20 at [address] Amended: Links added.
[2020-02-19] MEDS: dexmedetomidin/NS 400mcg/100ml 100 ML IV SCH (15:27)
[2020-02-19] MEDS ORDERED: normal saline 1000ml 1,000 ML IV ONE (17:25)
--- NOTE | 2020-02-19 18:10 | NUR ---
Problems reprioritized. Patient report given, questions answered & plan of care reviewed with oncoming shift.
--- NOTE | 2020-02-19 18:30 | NUR ---
Patient in room ICU 2043. I have received report from Arabella NICOLAS and had the opportunity to ask questions and assume patient care. Addendum: 02/19/20 at 1939 by Louisa Madrigal RN Amended: Links added.
--- NOTE | 2020-02-19 21:04 | NUR ---
Pt hypotensive: MAP:52. Hola notified, orders received.
[2020-02-19] MEDS ORDERED: albumin (Human) 5% 250ml 250 ML IV ONE ×2 (21:05)
[2020-02-19] MEDS: insulin glargine (Lantus) pen - multi-dose SQ SCH (21:59)
[2020-02-20] VITALS (23 sets, daily range): BP systolic 100–181; BP diastolic 51–80
[2020-02-20] MEDS: amiodarone/D5 360MG/200ML BAG 200 ML IV SCH ×5 (00:48→23:56)
[2020-02-20] MEDS: simethicone 80mg chew tab OGT SCH ×4 (00:49→23:57)
[2020-02-20] MEDS: dexmedetomidin/NS 400mcg/100ml 100 ML IV SCH ×2 (00:50→12:03)
[2020-02-20] MEDS: mineral oil/petrolatum ophthal oint EACHEYE SCH ×4 (02:37→20:22)
[2020-02-20] MEDS: insulin regular, human U-100 3ml vial - multi-dose SQ SCH ×4 (02:41→20:25)
[2020-02-20 03:02] LABS: BASOPHILS % (AUTO) 0 % (0-1); EOSINOPHILS % (AUTO) 0 % (0-6); HEMATOCRIT 23.6 % (42.0-52.0); HEMOGLOBIN 7.9 g/dl (14.0-17.9); LYMPHOCYTES # (AUTO) 0.1 X10'3 (1.1-4.8); LYMPHOCYTES % (AUTO) 1.8 % (21-51); MEAN CORPUSCULAR HEMOGLOBIN 32.6 PG (27.0-31.0); MEAN CORPUSCULAR HGB CONC 33.6 g/dL (33.0-36.5); MEAN CORPUSCULAR VOLUME 96.9 FL (78-98); MEAN PLATELET VOLUME 10.9 FL (7.4-10.4); MONOCYTES # (AUTO) 0.3 X10'3 (0-0.9); MONOCYTES % (AUTO) 3.7 % (2-12); NEUTROPHILS # (AUTO) 6.5 X10'3 (1.8-7.7); NEUTROPHILS % (AUTO) 94.5 % (42-75); RED BLOOD COUNT 2.44 X10'6 (4.70-6.10); RED CELL DISTRIBUTION WIDTH 17.9 % (11.5-14.5); WHITE BLOOD COUNT 6.9 X10'3 (4.5-11.0)
[2020-02-20] MEDS: ipratropium/albuterol 3ml nebule NEB SCH ×6 (03:06→23:36)
[2020-02-20 03:07] LABS: ALANINE AMINOTRANSFERASE 72 U/L (12-78); ALBUMIN 2.1 G/DL (3.4-5.0); ALBUMIN/GLOBULIN RATIO 0.7 (1.1-1.5); ALKALINE PHOSPHATASE 162 IU/L (46-116); ANION GAP 7 (8-16); ASPARTATE AMINO TRANSFERASE 49 U/L (10-37); BILIRUBIN,TOTAL 0.5 MG/DL (0.1-1.0); BLOOD UREA NITROGEN 46 MG/DL (7-18); BUN/CREATININE RATIO 17.4 (5.4-32.0); CALCIUM 7.6 MG/DL (8.5-10.1); CHLORIDE 101 MMOL/L (99-107); CREATININE 2.65 MG/DL (0.60-1.10); GLUCOSE 191 MG/DL (70-104); PHOSPHORUS 2.3 MG/DL (2.3-4.5); POTASSIUM 4.1 MMOL/L (3.5-5.1); PREALBUMIN 24.1 MG/DL (19-36); SODIUM 135 MMOL/L (135-145); TOTAL CARBON DIOXIDE 27.2 MMOL/L (24-32); eGFR 24 ML/MIN
[2020-02-20 03:09] LABS: PLATELET COUNT 31 X10'3 (140-440)
[2020-02-20 03:20] LABS: PLATELET ESTIMATE DECREASED
[2020-02-20 03:21] LABS: LARGE PLATELETS FEW
[2020-02-20 04:36] LABS: ABG BASE EXCESS 0.6 mmol/L (-2.0-3.0); ABG HCO3 25.1 mmol/L (22.0-26.0); ABG OXYGEN SATURATION 93.5 % (95-98); ABG PCO2 (T) 38.4 mmHg (35.0-45.0); ABG PO2 (T) 65.7 mmHg (83-108); ALLEN'S TEST POSITIVE; FCOHb 0.2 % (0.5-1.5); FMetHb 0.2 % (0.3-1.12); FO2Hb 93.1 % (94-100); PATIENT TEMPERATURE 36.1; PEEP 5 cm H2O; RESPIRATORY RATE 14 b/min; TIDAL VOLUME 500 mL; TOTAL HEMOGLOBIN 8.6 G/dl (14.0-17.9)
--- NOTE | 2020-02-20 06:30 | NUR ---
Problems reprioritized. Patient report given, questions answered & plan of care reviewed with Arabella NICOLAS.
--- NOTE | 2020-02-20 06:50 | NUR ---
Assessment completed, pt looks toward RN when spoken to, does not open eyes, only command followed was to squeeze hand w/right hand, ROYAL's spontaneously, occasionally has tremors to right arm and shoulder. Pt placed on CPAP by RT for approximately 1.5 hours, tolerated fair, RR up to low 30's, SaO2 down to 90%, did not come back up so placed pt back on previous settings w/improvement in RR and Sa02 up to mid 90's. Dr Avalos in updated, orders. Pt's POA called, updated, Dr Avalos to call. Pt w/medium liquid BM, abel-anal care provided, pt very reddened w/small open area, barrier cream applied w/opti-foam covering, scrotal and penile edema, sling placed under scrotum for support. Precedex placed on hold at 8:50. Addendum: 02/20/20 at 1401 by Ruth Perkins RN Amended: Links added.
[2020-02-20] MEDS: budesonide 0.5mg/2ml UD nebule IH SCH ×2 (07:19→19:35)
[2020-02-20] MEDS: methylPREDNISolone sod succ/PF 40mg inj. IV SCH ×2 (07:54→20:22)
[2020-02-20] MEDS: lactulose 20gm/30ml cup PO SCH ×3 (07:54→20:08)
[2020-02-20] MEDS: nicotine 14mg patch - 24hr TD SCH (07:54)
[2020-02-20] MEDS: CEFEPIME 2gm in D5W 50mL 50 ML IV SCH ×2 (07:54→20:23)
[2020-02-20] MEDS: sennosides 8.6mg tablet OGT SCH ×2 (07:54→20:00)
[2020-02-20] MEDS: docusate sodium 100mg/10ml UD cup OGT SCH (07:54)
[2020-02-20] MEDS: lactobacillus rhamnosus 10,000 MMU CELLS/CAPSULE OGT SCH ×2 (07:55→20:23)
[2020-02-20] MEDS: famotidine 20mg tablet OGT SCH ×2 (07:55→20:23)
[2020-02-20] MEDS: pregabalin 25mg capsule OGT SCH ×2 (07:55→20:23)
[2020-02-20] MEDS: amiodarone 100mg tablet PO SCH ×2 (07:55→20:23)
[2020-02-20] MEDS: NYSTATIN CREAM - 30GM TUBE TP SCH ×2 (07:57→20:22)
[2020-02-20] MEDS: K, MAG and/or Phos replacement - Verify level? MC SCH (08:00)
[2020-02-20] MEDS: heparin, porcine 5000 units/ml vial SQ SCH ×2 (11:53→20:36)
--- NOTE | 2020-02-20 17:51 | NUR ---
Pt incontinent of small void, he has had 2 liquid BM's today, pt more awake, opens eyes but still not following any commands, remains off sedation at this time. Addendum: 02/20/20 at 1753 by Ruth Perkins RN Amended: Links added.
--- NOTE | 2020-02-20 18:11 | NUR ---
Report to receiving RN given. Addendum: 02/20/20 at 1811 by Ruth Perkins RN Amended: Links added.
[2020-02-20] MEDS: insulin glargine (Lantus) pen - multi-dose SQ SCH (20:28)
[2020-02-21] VITALS (24 sets, daily range): BP systolic 89–175; BP diastolic 44–80
[2020-02-21] MEDS: insulin regular, human U-100 3ml vial - multi-dose SQ SCH ×4 (02:30→21:44)
[2020-02-21] MEDS: mineral oil/petrolatum ophthal oint EACHEYE SCH ×4 (02:31→19:58)
[2020-02-21] MEDS: dexmedetomidin/NS 400mcg/100ml 100 ML IV SCH ×2 (02:31→10:31)
[2020-02-21] MEDS: ipratropium/albuterol 3ml nebule NEB SCH ×6 (02:50→23:07)
[2020-02-21 03:10] LABS: ABG BASE EXCESS -1.6 mmol/L (-2.0-3.0); ABG HCO3 23.1 mmol/L (22.0-26.0); ABG OXYGEN SATURATION 93.3 % (95-98); ABG PCO2 (T) 38.7 mmHg (35.0-45.0); ABG PH (T) 7.394 (7.350-7.450); ABG PO2 (T) 69.3 mmHg (83-108); ALLEN'S TEST POSITIVE; FCOHb 0.3 % (0.5-1.5); FMetHb 0.1 % (0.3-1.12); FO2Hb 92.9 % (94-100); TOTAL HEMOGLOBIN 8.8 G/dl (14.0-17.9)
[2020-02-21] MEDS: amiodarone/D5 360MG/200ML BAG 200 ML IV SCH ×3 (05:21→17:29)
--- NOTE | 2020-02-21 06:00 | NUR ---
RN Note -Shift Summary Started Precedex around 2200 because pt was tachypneic and hypertensive. Turned Precedex off about 0500 due to hypotension. 0200 Blood sugar 359. MD aware Pt opens eyes spontaneously but is minimally responsive.
[2020-02-21 06:09] LABS: BASOPHILS % (AUTO) 0.3 % (0-1); EOSINOPHILS % (AUTO) 0.1 % (0-6); HEMOGLOBIN 8.2 g/dl (14.0-17.9); LYMPHOCYTES # (AUTO) 0.1 X10'3 (1.1-4.8); LYMPHOCYTES % (AUTO) 2.4 % (21-51); MEAN CORPUSCULAR HEMOGLOBIN 31.9 PG (27.0-31.0); MEAN CORPUSCULAR HGB CONC 32.7 g/dL (33.0-36.5); MEAN CORPUSCULAR VOLUME 97.5 FL (78-98); MEAN PLATELET VOLUME 11.4 FL (7.4-10.4); MONOCYTES # (AUTO) 0.3 X10'3 (0-0.9); MONOCYTES % (AUTO) 5.3 % (2-12); NEUTROPHILS # (AUTO) 5.3 X10'3 (1.8-7.7); NEUTROPHILS % (AUTO) 91.9 % (42-75); RED BLOOD COUNT 2.57 X10'6 (4.70-6.10); RED CELL DISTRIBUTION WIDTH 18.8 % (11.5-14.5); WHITE BLOOD COUNT 5.8 X10'3 (4.5-11.0)
[2020-02-21 06:19] LABS: PLATELET COUNT 29 X10'3 (140-440)
[2020-02-21 06:49] LABS: ALANINE AMINOTRANSFERASE 83 U/L (12-78); ALBUMIN 1.8 G/DL (3.4-5.0); ALBUMIN/GLOBULIN RATIO 0.6 (1.1-1.5); ALKALINE PHOSPHATASE 199 IU/L (46-116); ANION GAP 11 (8-16); ASPARTATE AMINO TRANSFERASE 40 U/L (10-37); BILIRUBIN,TOTAL 0.4 MG/DL (0.1-1.0); BLOOD UREA NITROGEN 79 MG/DL (7-18); BUN/CREATININE RATIO 21.9 (5.4-32.0); CALCIUM 7.7 MG/DL (8.5-10.1); CHLORIDE 96 MMOL/L (99-107); CREATININE 3.61 MG/DL (0.60-1.10); GLUCOSE 319 MG/DL (70-104); MAGNESIUM 2.2 MG/DL (1.5-2.4); PHOSPHORUS 2.9 MG/DL (2.3-4.5); POTASSIUM 5.3 MMOL/L (3.5-5.1); SODIUM 132 MMOL/L (135-145); TOTAL CARBON DIOXIDE 24.6 MMOL/L (24-32); eGFR 17 ML/MIN
[2020-02-21] MEDS: budesonide 0.5mg/2ml UD nebule IH SCH ×2 (07:14→19:17)
[2020-02-21] MEDS: CEFEPIME 2gm in D5W 50mL 50 ML IV SCH (07:51)
[2020-02-21] MEDS: methylPREDNISolone sod succ/PF 40mg inj. IV SCH ×2 (07:53→19:58)
[2020-02-21] MEDS: methylnaltrexone br 12mg/0.6ml inj***SubQ only SQ SCH (07:54)
[2020-02-21] MEDS: lactulose 20gm/30ml cup PO SCH ×3 (07:57→21:00)
[2020-02-21] MEDS: docusate sodium 100mg/10ml UD cup OGT SCH (07:57)
[2020-02-21] MEDS: sennosides 8.6mg tablet OGT SCH ×2 (07:58→20:00)
[2020-02-21] MEDS: amiodarone 100mg tablet PO SCH ×2 (07:58→19:59)
[2020-02-21] MEDS: famotidine 20mg tablet OGT SCH ×2 (07:58→19:59)
[2020-02-21] MEDS: pregabalin 25mg capsule OGT SCH ×2 (07:58→19:59)
[2020-02-21] MEDS: lactobacillus rhamnosus 10,000 MMU CELLS/CAPSULE OGT SCH ×2 (07:58→19:58)
[2020-02-21] MEDS: simethicone 80mg chew tab OGT SCH ×2 (07:58→15:19)
[2020-02-21 08:02] LABS: ANISOCYTOSIS 2+; LARGE PLATELETS FEW; PLATELET ESTIMATE DECREASED; POLYCHROMASIA FEW; TEAR DROP CELLS FEW
[2020-02-21] MEDS: NYSTATIN CREAM - 30GM TUBE TP SCH ×2 (08:06→20:00)
[2020-02-21] MEDS: nicotine 14mg patch - 24hr TD SCH (08:07)
[2020-02-21] MEDS: K, MAG and/or Phos replacement - Verify level? MC SCH (08:53)
[2020-02-21] MEDS ORDERED: normal saline 1000ml 250 ML IV PRN (09:37)
[2020-02-21] MEDS ORDERED: heparin 1,000unit/ml 10ml vial 10 ML IV ONE (09:37)
[2020-02-21] MEDS ORDERED: epoetin 20,000 units/ml inj IV ONE (09:40)
[2020-02-21] MEDS ORDERED: heparin 1,000 units/ml 10ml inj HE ONE ×2 (09:45)
--- NOTE | 2020-02-21 10:44 | NUR ---
Reassessment: Pt remains intubated and receiving HD. Pt continues tolerating TF at goal rate with GRV WNL. Pt continues with multiple bowel care medications, LBM now 02/19. Will continue to follow closely. Rec: 1. EN per MD using Vital AF at 80 ml/hr goal; to provide total volume of 1920 mL/day, 2304 kcals, 1555 mL free water, and 144 g protein. 2. water flush 50ml Q6H per forest pathology teacher 3. PALB Q /; daily wts 4. routine bowel care; opioid antagonist per MD; consider promotility agent IF MD is agreeable 5. upon extubation; advance diet as medically indicated to carb controlled/heart healthy 6. DM ed once stable following extubation Addendum: 02/21/20 at [address] Amended: Links added.
[2020-02-21] MEDS: heparin, porcine 5000 units/ml vial SQ SCH ×2 (11:41→19:59)
--- NOTE | 2020-02-21 18:29 | NUR ---
Problems reprioritized. Patient report given to security shift manager RN, questions answered & plan of care reviewed with .
--- NOTE | 2020-02-21 18:30 | NUR ---
received report from day shift rn, assumed care. assessment completed. pt occasionally grimaces or wiggles his feet, otherwise not alert or following any commands.
[2020-02-21] MEDS: insulin glargine (Lantus) pen - multi-dose SQ SCH (21:42)
[2020-02-22] VITALS (23 sets, daily range): BP systolic 90–140; BP diastolic 44–71
[2020-02-22] MEDS: simethicone 80mg chew tab OGT SCH ×3 (00:17→16:01)
[2020-02-22] MEDS: lactulose 20gm/30ml cup PO SCH ×4 (00:19→20:29)
[2020-02-22] MEDS: sennosides 8.6mg tablet OGT SCH ×2 (00:21→20:29)
--- NOTE | 2020-02-22 00:38 | NUR ---
precedex turned off r/t hypotension. pt not currently tachypnec or showing any signs of agitation or discomfort.
[2020-02-22] MEDS: amiodarone/D5 360MG/200ML BAG 200 ML IV SCH ×5 (01:16→22:31)
[2020-02-22] MEDS: mineral oil/petrolatum ophthal oint EACHEYE SCH ×4 (02:31→20:30)
[2020-02-22 02:42] LABS: BASOPHILS % (AUTO) 0.1 % (0-1); EOSINOPHILS % (AUTO) 0.1 % (0-6); HEMATOCRIT 24.3 % (42.0-52.0); HEMOGLOBIN 8.1 g/dl (14.0-17.9); LYMPHOCYTES # (AUTO) 0.1 X10'3 (1.1-4.8); LYMPHOCYTES % (AUTO) 2.5 % (21-51); MEAN CORPUSCULAR HGB CONC 33.3 g/dL (33.0-36.5); MEAN PLATELET VOLUME 11.4 FL (7.4-10.4); MONOCYTES # (AUTO) 0.3 X10'3 (0-0.9); MONOCYTES % (AUTO) 5.1 % (2-12); NEUTROPHILS # (AUTO) 5.5 X10'3 (1.8-7.7); NEUTROPHILS % (AUTO) 92.2 % (42-75); RED BLOOD COUNT 2.53 X10'6 (4.70-6.10); RED CELL DISTRIBUTION WIDTH 19.1 % (11.5-14.5); WHITE BLOOD COUNT 5.9 X10'3 (4.5-11.0)
[2020-02-22 02:47] LABS: ALANINE AMINOTRANSFERASE 109 U/L (12-78); ALBUMIN 1.8 G/DL (3.4-5.0); ALBUMIN/GLOBULIN RATIO 0.5 (1.1-1.5); ALKALINE PHOSPHATASE 236 IU/L (46-116); ANION GAP 6 (8-16); ASPARTATE AMINO TRANSFERASE 59 U/L (10-37); BILIRUBIN,TOTAL 0.4 MG/DL (0.1-1.0); BLOOD UREA NITROGEN 60 MG/DL (7-18); BUN/CREATININE RATIO 21.7 (5.4-32.0); CALCIUM 7.9 MG/DL (8.5-10.1); CHLORIDE 101 MMOL/L (99-107); CREATININE 2.77 MG/DL (0.60-1.10); GLUCOSE 193 MG/DL (70-104); MAGNESIUM 2.3 MG/DL (1.5-2.4); POTASSIUM 4.9 MMOL/L (3.5-5.1); SODIUM 135 MMOL/L (135-145); TOTAL CARBON DIOXIDE 27.9 MMOL/L (24-32); TOTAL PROTEIN 5.1 G/DL (6.4-8.2); eGFR 23 ML/MIN
[2020-02-22] MEDS: insulin regular, human U-100 3ml vial - multi-dose SQ SCH ×4 (03:07→20:36)
[2020-02-22 03:33] LABS: PLATELET COUNT 26 X10'3 (140-440)
[2020-02-22 03:36] LABS: LARGE PLATELETS FEW; PLATELET ESTIMATE DECREASED
[2020-02-22] MEDS: ipratropium/albuterol 3ml nebule NEB SCH ×6 (03:43→23:11)
[2020-02-22 04:01] LABS: ABG BASE EXCESS 1.3 mmol/L (-2.0-3.0); ABG HCO3 25.6 mmol/L (22.0-26.0); ABG OXYGEN SATURATION 91.2 % (95-98); ABG PCO2 (T) 37.9 mmHg (35.0-45.0); ABG PH (T) 7.445 (7.350-7.450); ABG PO2 (T) 55.6 mmHg (83-108); ALLEN'S TEST POSITIVE; FCOHb 0.6 % (0.5-1.5); FMetHb 0.1 % (0.3-1.12); FO2Hb 90.6 % (94-100); PATIENT TEMPERATURE 36.2; TOTAL HEMOGLOBIN 9.8 G/dl (14.0-17.9)
[2020-02-22] MEDS: methylPREDNISolone sod succ/PF 40mg inj. IV SCH ×2 (07:05→20:30)
[2020-02-22] MEDS: docusate sodium 100mg/10ml UD cup OGT SCH (07:05)
[2020-02-22] MEDS: pregabalin 25mg capsule OGT SCH ×2 (07:06→20:29)
[2020-02-22] MEDS: amiodarone 100mg tablet PO SCH ×2 (07:06→20:30)
[2020-02-22] MEDS: famotidine 20mg tablet OGT SCH ×2 (07:06→20:30)
[2020-02-22] MEDS: lactobacillus rhamnosus 10,000 MMU CELLS/CAPSULE OGT SCH ×2 (07:06→20:29)
[2020-02-22] MEDS: nicotine 14mg patch - 24hr TD SCH (07:07)
[2020-02-22] MEDS: NYSTATIN CREAM - 30GM TUBE TP SCH ×2 (07:08→20:30)
[2020-02-22] MEDS: budesonide 0.5mg/2ml UD nebule IH SCH ×2 (07:25→19:30)
[2020-02-22] MEDS: K, MAG and/or Phos replacement - Verify level? MC SCH (07:58)
[2020-02-22] MEDS: heparin, porcine 5000 units/ml vial SQ SCH ×2 (08:00→20:00)
[2020-02-22] MEDS: dexmedetomidin/NS 400mcg/100ml 100 ML IV SCH ×3 (08:59→20:13)
[2020-02-22] MEDS ORDERED: fentaNYL/PF 50MCG/1 ML 2ML syringe IV PRN (20:10)
[2020-02-22] MEDS: insulin glargine (Lantus) pen - multi-dose SQ SCH (20:37)
[2020-02-23] VITALS (24 sets, daily range): BP systolic 88–147; BP diastolic 44–71
[2020-02-23] MEDS: simethicone 80mg chew tab OGT SCH ×3 (00:09→16:44)
[2020-02-23] MEDS: mineral oil/petrolatum ophthal oint EACHEYE SCH ×4 (02:44→20:23)
[2020-02-23] MEDS: insulin regular, human U-100 3ml vial - multi-dose SQ SCH ×4 (02:47→20:28)
[2020-02-23] MEDS: ipratropium/albuterol 3ml nebule NEB SCH ×6 (03:05→23:05)
[2020-02-23 03:20] LABS: ABG BASE EXCESS -2.2 mmol/L (-2.0-3.0); ABG HCO3 22.1 mmol/L (22.0-26.0); ABG OXYGEN SATURATION 95.9 % (95-98); ABG PH (T) 7.406 (7.350-7.450); ABG PO2 (T) 85.4 mmHg (83-108); ALLEN'S TEST POSITIVE; FMetHb 0.1 % (0.3-1.12); FO2Hb 95.8 % (94-100); PATIENT TEMPERATURE 37.2; TOTAL HEMOGLOBIN 8.8 G/dl (14.0-17.9)
[2020-02-23] MEDS: dexmedetomidin/NS 400mcg/100ml 100 ML IV SCH ×2 (05:36→17:52)
[2020-02-23] MEDS: amiodarone/D5 360MG/200ML BAG 200 ML IV SCH ×4 (05:53→23:37)
[2020-02-23 06:12] LABS: BASOPHILS % (AUTO) 0.1 % (0-1); EOSINOPHILS % (AUTO) 0 % (0-6); LYMPHOCYTES # (AUTO) 0.2 X10'3 (1.1-4.8); MEAN CORPUSCULAR HGB CONC 33.5 g/dL (33.0-36.5); RED BLOOD COUNT 2.55 X10'6 (4.70-6.10)
[2020-02-23 06:15] LABS: HEMATOCRIT 24.5 % (42.0-52.0); HEMOGLOBIN 8.2 g/dl (14.0-17.9); LYMPHOCYTES % (AUTO) 2.5 % (21-51); MEAN CORPUSCULAR HEMOGLOBIN 32.1 PG (27.0-31.0); MEAN CORPUSCULAR VOLUME 95.8 FL (78-98); MEAN PLATELET VOLUME 12.2 FL (7.4-10.4); MONOCYTES # (AUTO) 0.4 X10'3 (0-0.9); NEUTROPHILS # (AUTO) 6.7 X10'3 (1.8-7.7); NEUTROPHILS % (AUTO) 92.4 % (42-75); RED CELL DISTRIBUTION WIDTH 19.3 % (11.5-14.5); WHITE BLOOD COUNT 7.2 X10'3 (4.5-11.0)
--- NOTE | 2020-02-23 06:17 | NUR ---
Problems reprioritized. Patient report given, questions answered & plan of care reviewed with Ashley NICOLAS.
[2020-02-23 06:22] LABS: ALANINE AMINOTRANSFERASE 151 U/L (12-78); ALBUMIN 1.7 G/DL (3.4-5.0); ALBUMIN/GLOBULIN RATIO 0.5 (1.1-1.5); ALKALINE PHOSPHATASE 282 IU/L (46-116); ANION GAP 12 (8-16); ASPARTATE AMINO TRANSFERASE 86 U/L (10-37); BILIRUBIN,TOTAL 0.4 MG/DL (0.1-1.0); BLOOD UREA NITROGEN 95 MG/DL (7-18); BUN/CREATININE RATIO 25.3 (5.4-32.0); CHLORIDE 97 MMOL/L (99-107); CREATININE 3.75 MG/DL (0.60-1.10); GLUCOSE 241 MG/DL (70-104); MAGNESIUM 2.6 MG/DL (1.5-2.4); PHOSPHORUS 2.9 MG/DL (2.3-4.5); POTASSIUM 5.6 MMOL/L (3.5-5.1); SODIUM 134 MMOL/L (135-145); TOTAL CARBON DIOXIDE 24.9 MMOL/L (24-32); eGFR 16 ML/MIN
[2020-02-23 06:51] LABS: PLATELET COUNT 28 X10'3 (140-440)
[2020-02-23 06:52] LABS: LARGE PLATELETS FEW; PLATELET ESTIMATE DECREASED
[2020-02-23] MEDS: sennosides 8.6mg tablet OGT SCH ×2 (07:48→20:22)
[2020-02-23] MEDS: lactobacillus rhamnosus 10,000 MMU CELLS/CAPSULE OGT SCH ×2 (07:48→20:22)
[2020-02-23] MEDS: amiodarone 100mg tablet PO SCH ×2 (07:48→20:22)
[2020-02-23] MEDS: famotidine 20mg tablet OGT SCH ×2 (07:48→20:22)
[2020-02-23] MEDS: pregabalin 25mg capsule OGT SCH ×2 (07:48→20:22)
[2020-02-23] MEDS: docusate sodium 100mg/10ml UD cup OGT SCH (07:48)
[2020-02-23] MEDS: lactulose 20gm/30ml cup PO SCH ×3 (07:49→20:22)
[2020-02-23] MEDS: NYSTATIN CREAM - 30GM TUBE TP SCH ×2 (07:49→20:23)
[2020-02-23] MEDS: nicotine 14mg patch - 24hr TD SCH (07:55)
[2020-02-23] MEDS: methylnaltrexone br 12mg/0.6ml inj***SubQ only SQ SCH (07:55)
[2020-02-23] MEDS: methylPREDNISolone sod succ/PF 40mg inj. IV SCH ×2 (07:55→20:21)
[2020-02-23] MEDS: K, MAG and/or Phos replacement - Verify level? MC SCH (08:00)
[2020-02-23] MEDS: budesonide 0.5mg/2ml UD nebule IH SCH ×2 (11:19→19:15)
[2020-02-23] MEDS: insulin glargine (Lantus) pen - multi-dose SQ SCH (20:27)
[2020-02-24] VITALS (23 sets, daily range): BP systolic 81–131; BP diastolic 48–72
[2020-02-24] MEDS: simethicone 80mg chew tab OGT SCH ×3 (00:08→20:24)
[2020-02-24] MEDS: mineral oil/petrolatum ophthal oint EACHEYE SCH ×4 (02:09→20:00)
[2020-02-24] MEDS: insulin regular, human U-100 3ml vial - multi-dose SQ SCH ×2 (02:11→09:20)
[2020-02-24] MEDS: ipratropium/albuterol 3ml nebule NEB SCH ×6 (03:24→23:09)
[2020-02-24 03:25] LABS: ABG BASE EXCESS -4.9 mmol/L (-2.0-3.0); ABG HCO3 19.3 mmol/L (22.0-26.0); ABG OXYGEN SATURATION 93.3 % (95-98); ABG PCO2 (T) 32.5 mmHg (35.0-45.0); ABG PH (T) 7.393 (7.350-7.450); ALLEN'S TEST POSITIVE; FCOHb 0.3 % (0.5-1.5); FMetHb 0.1 % (0.3-1.12); FO2Hb 92.9 % (94-100); PATIENT TEMPERATURE 37.4; TOTAL HEMOGLOBIN 8.5 G/dl (14.0-17.9)
[2020-02-24] MEDS: dexmedetomidin/NS 400mcg/100ml 100 ML IV SCH ×2 (05:55→17:09)
[2020-02-24] MEDS: amiodarone/D5 360MG/200ML BAG 200 ML IV SCH ×2 (06:09→12:30)
[2020-02-24 06:21] LABS: ALANINE AMINOTRANSFERASE 301 U/L (12-78); ALBUMIN 1.6 G/DL (3.4-5.0); ALBUMIN/GLOBULIN RATIO 0.5 (1.1-1.5); ALKALINE PHOSPHATASE 268 IU/L (46-116); ANION GAP 15 (8-16); ASPARTATE AMINO TRANSFERASE 203 U/L (10-37); BILIRUBIN,TOTAL 0.5 MG/DL (0.1-1.0); BLOOD UREA NITROGEN 116 MG/DL (7-18); BUN/CREATININE RATIO 26.7 (5.4-32.0); CALCIUM 8.1 MG/DL (8.5-10.1); CHLORIDE 95 MMOL/L (99-107); CREATININE 4.34 MG/DL (0.60-1.10); GLUCOSE 138 MG/DL (70-104); MAGNESIUM 2.8 MG/DL (1.5-2.4); PHOSPHORUS 4.1 MG/DL (2.3-4.5); POTASSIUM 5.3 MMOL/L (3.5-5.1); SODIUM 132 MMOL/L (135-145); TOTAL CARBON DIOXIDE 22.1 MMOL/L (24-32); TOTAL PROTEIN 4.9 G/DL (6.4-8.2); eGFR 14 ML/MIN
[2020-02-24 06:56] LABS: BASOPHILS % (AUTO) 0 % (0-1); EOSINOPHILS % (AUTO) 0 % (0-6); HEMOGLOBIN 8.2 g/dl (14.0-17.9); LYMPHOCYTES # (AUTO) 0.2 X10'3 (1.1-4.8)
[2020-02-24 06:58] LABS: HEMATOCRIT 24.7 % (42.0-52.0); LYMPHOCYTES % (AUTO) 2.7 % (21-51); MEAN CORPUSCULAR HEMOGLOBIN 32.5 PG (27.0-31.0); MEAN CORPUSCULAR HGB CONC 33.3 g/dL (33.0-36.5); MEAN CORPUSCULAR VOLUME 97.5 FL (78-98); MEAN PLATELET VOLUME 10.4 FL (7.4-10.4); MONOCYTES # (AUTO) 0.2 X10'3 (0-0.9); MONOCYTES % (AUTO) 3.5 % (2-12); NEUTROPHILS # (AUTO) 5.8 X10'3 (1.8-7.7); NEUTROPHILS % (AUTO) 93.8 % (42-75); RED BLOOD COUNT 2.54 X10'6 (4.70-6.10); RED CELL DISTRIBUTION WIDTH 19.7 % (11.5-14.5); WHITE BLOOD COUNT 6.2 X10'3 (4.5-11.0)
[2020-02-24 07:02] LABS: PLATELET COUNT 23 X10'3 (140-440)
[2020-02-24] MEDS: budesonide 0.5mg/2ml UD nebule IH SCH ×2 (07:31→19:31)
[2020-02-24] MEDS: lactobacillus rhamnosus 10,000 MMU CELLS/CAPSULE OGT SCH ×2 (07:51→20:26)
[2020-02-24] MEDS: pregabalin 25mg capsule OGT SCH ×2 (07:51→20:24)
[2020-02-24] MEDS: famotidine 20mg tablet OGT SCH ×2 (07:51→20:25)
[2020-02-24] MEDS: sennosides 8.6mg tablet OGT SCH ×2 (07:51→20:25)
[2020-02-24] MEDS: amiodarone 100mg tablet PO SCH (07:51)
[2020-02-24] MEDS: NYSTATIN CREAM - 30GM TUBE TP SCH (07:52)
[2020-02-24] MEDS: nicotine 14mg patch - 24hr TD SCH (07:52)
[2020-02-24] MEDS: docusate sodium 100mg/10ml UD cup OGT SCH (07:52)
[2020-02-24] MEDS: K, MAG and/or Phos replacement - Verify level? MC SCH (07:52)
[2020-02-24] MEDS: methylPREDNISolone sod succ/PF 40mg inj. IV SCH ×2 (07:52→20:00)
[2020-02-24] MEDS: lactulose 20gm/30ml cup PO SCH (07:52)
[2020-02-24 07:58] LABS: ANISOCYTOSIS 2+; LARGE PLATELETS MODERATE; PLATELET ESTIMATE DECREASED; TOTAL CELLS COUNTED 100; TOXIC GRANULATION 1+
[2020-02-24] MEDS ORDERED: heparin 1,000unit/ml 10ml vial 10 ML IV ONE (09:24)
[2020-02-24] MEDS ORDERED: normal saline 1000ml 250 ML IV PRN (09:24)
[2020-02-24] MEDS ORDERED: epoetin 20,000 units/ml inj IV ONE (09:25)
[2020-02-24] MEDS ORDERED: heparin 1,000 units/ml 10ml inj HE ONE ×2 (09:30)
--- NOTE | 2020-02-24 10:41 | NUR ---
Tube feeding restarted
--- NOTE | 2020-02-24 11:57 | NUR ---
Reassessment: Pt intubated, receiving HD. Had gastric residual volume up to 550 ml this morning, being given multiple bowel care medications including daily colace, senna q 12 hours, Relistor, and lactulose added by Sleeve Machine Tender today; had copious bowel movement on 02/20 and and last bowel movement was small on 02/21, likely pt is constipated. Recommend to continue bowel care. Tube feedings are at goal rate of 80 ml/hr. Patient has gained 15 kg since admission likely with fluids, patient has pitting 3+ pitting edema, positive fluid per I/O; not currently receiving any additional water flush. Will continue to follow. Rec: 1. Continue continuous tube feeding using Vital AF at 80 ml/hr goal; to provide total volume of 1920 mL/day, 2304 kcals, 1555 mL free water, and 144 g protein. 2. no additional water flush per data analyst report writer 3. PALB q /; daily wts 4. Continue routine bowel care Addendum: 02/24/20 at [address] Amended: Links added.
--- NOTE | 2020-02-24 14:18 | NUR ---
Pt had a critical low blood glucose, retook it and got a reading of 57, 25 grams of dextrose given
[2020-02-24] MEDS: lactulose 20gm/30ml cup OGT SCH ×2 (18:01→20:23)
[2020-02-24] MEDS: amiodarone 100mg tablet OGT SCH (20:23)
[2020-02-24] MEDS: insulin glargine (Lantus) pen - multi-dose SQ SCH (22:54)
[2020-02-25] VITALS (24 sets, daily range): BP systolic 83–142; BP diastolic 43–69
[2020-02-25] MEDS: amiodarone/D5 360MG/200ML BAG 200 ML IV SCH ×5 (00:21→18:33)
[2020-02-25] MEDS: NYSTATIN CREAM - 30GM TUBE TP SCH ×3 (00:39→20:56)
[2020-02-25] MEDS: simethicone 80mg chew tab OGT SCH ×3 (00:39→15:45)
[2020-02-25] MEDS: mineral oil/petrolatum ophthal oint EACHEYE SCH ×4 (02:55→20:57)
[2020-02-25] MEDS: insulin regular, human U-100 3ml vial - multi-dose SQ SCH ×4 (02:55→21:10)
[2020-02-25] MEDS: ipratropium/albuterol 3ml nebule NEB SCH ×6 (03:00→23:22)
--- NOTE | 2020-02-25 07:00 | NUR ---
Received critical PLT of 43 from lab, improved from 23 on 02/23 Addendum: 02/25/20 at 0939 by Sridevi Singer RN Incorrect number. Lab called and said they needed to redraw, and plts are 27 up from 23, NOT 43.
--- NOTE | 2020-02-25 07:03 | NUR ---
Patient in room ICU 2043. I have received report from Zahida NICOLAS and had the opportunity to ask questions and assume patient care.
[2020-02-25] MEDS: budesonide 0.5mg/2ml UD nebule IH SCH ×2 (07:23→19:05)
[2020-02-25 07:34] LABS: ALBUMIN 1.5 G/DL (3.4-5.0); ALBUMIN/GLOBULIN RATIO 0.4 (1.1-1.5); ALKALINE PHOSPHATASE 400 IU/L (46-116); ANION GAP 12 (8-16); BILIRUBIN,TOTAL 0.4 MG/DL (0.1-1.0); BLOOD UREA NITROGEN 74 MG/DL (7-18); BUN/CREATININE RATIO 24.3 (5.4-32.0); CALCIUM 8.1 MG/DL (8.5-10.1); CHLORIDE 98 MMOL/L (99-107); CREATININE 3.05 MG/DL (0.60-1.10); GLUCOSE 139 MG/DL (70-104); MAGNESIUM 2.5 MG/DL (1.5-2.4); SODIUM 135 MMOL/L (135-145); TOTAL CARBON DIOXIDE 25.3 MMOL/L (24-32); TRIGLYCERIDES 55 MG/DL (20-135); eGFR 21 ML/MIN
[2020-02-25 07:38] LABS: ALANINE AMINOTRANSFERASE 1787 U/L (12-78); ASPARTATE AMINO TRANSFERASE 1327 U/L (10-37); POTASSIUM 4.6 MMOL/L (3.5-5.1)
[2020-02-25] MEDS: K, MAG and/or Phos replacement - Verify level? MC SCH (08:00)
[2020-02-25] MEDS: famotidine 20mg tablet OGT SCH ×2 (08:35→20:56)
[2020-02-25] MEDS: methylPREDNISolone sod succ/PF 40mg inj. IV SCH ×2 (08:35→20:56)
[2020-02-25] MEDS: methylnaltrexone br 12mg/0.6ml inj***SubQ only SQ SCH (08:35)
[2020-02-25] MEDS: lactulose 20gm/30ml cup OGT SCH ×3 (08:35→20:56)
[2020-02-25] MEDS: sennosides 8.6mg tablet OGT SCH ×2 (08:36→20:56)
[2020-02-25] MEDS: lactobacillus rhamnosus 10,000 MMU CELLS/CAPSULE OGT SCH ×2 (08:36→20:56)
[2020-02-25] MEDS: amiodarone 100mg tablet OGT SCH ×2 (08:36→20:56)
[2020-02-25] MEDS: pregabalin 25mg capsule OGT SCH ×2 (08:36→20:56)
[2020-02-25] MEDS: docusate sodium 100mg/10ml UD cup OGT SCH (08:36)
[2020-02-25] MEDS: nicotine 14mg patch - 24hr TD SCH (08:37)
[2020-02-25 08:42] LABS: BASOPHILS % (AUTO) 0.1 % (0-1); HEMATOCRIT 24.5 % (42.0-52.0); MEAN CORPUSCULAR HEMOGLOBIN 32.1 PG (27.0-31.0); RED CELL DISTRIBUTION WIDTH 20.2 % (11.5-14.5)
[2020-02-25 08:44] LABS: EOSINOPHILS % (AUTO) 0 % (0-6); HEMOGLOBIN 8.2 g/dl (14.0-17.9); LYMPHOCYTES # (AUTO) 0.1 X10'3 (1.1-4.8); LYMPHOCYTES % (AUTO) 2.9 % (21-51); MEAN CORPUSCULAR HGB CONC 33.3 g/dL (33.0-36.5); MEAN CORPUSCULAR VOLUME 96.6 FL (78-98); MEAN PLATELET VOLUME 13.3 FL (7.4-10.4); MONOCYTES # (AUTO) 0.4 X10'3 (0-0.9); MONOCYTES % (AUTO) 8.2 % (2-12); NEUTROPHILS # (AUTO) 4.2 X10'3 (1.8-7.7); NEUTROPHILS % (AUTO) 88.8 % (42-75); RED BLOOD COUNT 2.54 X10'6 (4.70-6.10); WHITE BLOOD COUNT 4.7 X10'3 (4.5-11.0)
[2020-02-25 08:46] LABS: PLATELET COUNT 27 X10'3 (140-440)
[2020-02-25 10:31] LABS: ANISOCYTOSIS 3+; PLATELET ESTIMATE DECREASED
[2020-02-25 10:35] LABS: POIKILOCYTOSIS 1+
[2020-02-25 10:36] LABS: SCHISTOCYTES FEW; TEAR DROP CELLS FEW
--- NOTE | 2020-02-25 18:05 | NUR ---
Problems reprioritized. Patient report given, questions answered & plan of care reviewed with Zahida NICOLAS.
--- NOTE | 2020-02-25 18:10 | NUR ---
Patient in room ICU 2043. I have received report from Rhonda NICOLAS and had the opportunity to ask questions and assume patient care. Patient in bed on vent, ETT, FiO2 35% PEEP 5, no sedation, amiodarone drip infusing for atrial fib per orders via PIV. See interventions, IV spreadsheet and EMR for further information. All monitoring alarms audible. Will continue to monitor.
[2020-02-25] MEDS: insulin glargine (Lantus) pen - multi-dose SQ SCH (21:12)
[2020-02-26] VITALS (12 sets, daily range): BP systolic 92–146; BP diastolic 36–77
[2020-02-26] MEDS: amiodarone/D5 360MG/200ML BAG 200 ML IV SCH (00:01)
[2020-02-26] MEDS: simethicone 80mg chew tab OGT SCH ×2 (00:02→08:14)
[2020-02-26] MEDS: insulin regular, human U-100 3ml vial - multi-dose SQ SCH ×2 (02:15→09:10)
[2020-02-26] MEDS: mineral oil/petrolatum ophthal oint EACHEYE SCH ×2 (02:16→08:16)
[2020-02-26] MEDS: ipratropium/albuterol 3ml nebule NEB SCH ×2 (03:22→07:56)
[2020-02-26 05:51] LABS: ALBUMIN 1.5 G/DL (3.4-5.0); ALBUMIN/GLOBULIN RATIO 0.4 (1.1-1.5); ALKALINE PHOSPHATASE 460 IU/L (46-116); ANION GAP 12 (8-16); ASPARTATE AMINO TRANSFERASE 330 U/L (10-37); BILIRUBIN,TOTAL 0.5 MG/DL (0.1-1.0); BLOOD UREA NITROGEN 99 MG/DL (7-18); BUN/CREATININE RATIO 26.8 (5.4-32.0); CHLORIDE 97 MMOL/L (99-107); CREATININE 3.69 MG/DL (0.60-1.10); GLUCOSE 177 MG/DL (70-104); MAGNESIUM 2.8 MG/DL (1.5-2.4); PHOSPHORUS 4.1 MG/DL (2.3-4.5); POTASSIUM 4.5 MMOL/L (3.5-5.1); SODIUM 134 MMOL/L (135-145); TOTAL CARBON DIOXIDE 24.6 MMOL/L (24-32); TOTAL PROTEIN 4.9 G/DL (6.4-8.2); eGFR 17 ML/MIN
[2020-02-26 05:53] LABS: HEMOGLOBIN 8.3 g/dl (14.0-17.9); LYMPHOCYTES # (AUTO) 0.1 X10'3 (1.1-4.8); MONOCYTES # (AUTO) 0.2 X10'3 (0-0.9)
[2020-02-26 05:54] LABS: BASOPHILS % (AUTO) 0 % (0-1); EOSINOPHILS % (AUTO) 0.1 % (0-6); MEAN CORPUSCULAR HGB CONC 33.2 g/dL (33.0-36.5); MEAN CORPUSCULAR VOLUME 96.3 FL (78-98); MEAN PLATELET VOLUME 13.7 FL (7.4-10.4); MONOCYTES % (AUTO) 3.2 % (2-12); NEUTROPHILS # (AUTO) 5.1 X10'3 (1.8-7.7); NEUTROPHILS % (AUTO) 94.7 % (42-75); RED CELL DISTRIBUTION WIDTH 20.9 % (11.5-14.5); WHITE BLOOD COUNT 5.4 X10'3 (4.5-11.0)
[2020-02-26 06:09] LABS: PLATELET COUNT 32 X10'3 (140-440)
[2020-02-26 06:11] LABS: ALANINE AMINOTRANSFERASE 1208 U/L (12-78)
--- NOTE | 2020-02-26 06:30 | NUR ---
Patient in room ICU 2043. I have received report from Zahida NICOLAS and had the opportunity to ask questions and assume patient care.
[2020-02-26 07:49] LABS: ANISOCYTOSIS 3+; PLATELET ESTIMATE DECREASED
[2020-02-26 07:50] LABS: SCHISTOCYTES FEW; TEAR DROP CELLS FEW
[2020-02-26] MEDS: budesonide 0.5mg/2ml UD nebule IH SCH (07:57)
[2020-02-26] MEDS ORDERED: heparin 1,000unit/ml 10ml vial 10 ML IV ONE (08:00)
[2020-02-26] MEDS ORDERED: heparin 1,000 units/ml 10ml inj HE ONE ×2 (08:00)
[2020-02-26] MEDS ORDERED: normal saline 1000ml 250 ML IV PRN (08:00)
[2020-02-26] MEDS ORDERED: epoetin 20,000 units/ml inj IV ONE (08:00)
[2020-02-26] MEDS: docusate sodium 100mg/10ml UD cup OGT SCH (08:10)
[2020-02-26] MEDS: methylPREDNISolone sod succ/PF 40mg inj. IV SCH (08:11)
[2020-02-26] MEDS: sennosides 8.6mg tablet OGT SCH (08:13)
[2020-02-26] MEDS: pregabalin 25mg capsule OGT SCH (08:13)
[2020-02-26] MEDS: amiodarone 100mg tablet OGT SCH (08:14)
[2020-02-26] MEDS: famotidine 20mg tablet OGT SCH (08:14)
[2020-02-26] MEDS: lactulose 20gm/30ml cup OGT SCH (08:15)
[2020-02-26] MEDS: lactobacillus rhamnosus 10,000 MMU CELLS/CAPSULE OGT SCH (08:15)
[2020-02-26] MEDS: nicotine 14mg patch - 24hr TD SCH (08:16)
[2020-02-26] MEDS: NYSTATIN CREAM - 30GM TUBE TP SCH (08:17)
[2020-02-26] MEDS ORDERED: ipratropium/albuterol 3ml nebule NEB PRN (10:45)
[2020-02-26] MEDS ORDERED: racepinephrine 11.25mg/0.5ml nebule NEB PRN (10:45)
[2020-02-26] MEDS ORDERED: LORazepam 2 mg/ml vial ONE (11:01)
[2020-02-26] MEDS ORDERED: morphine 4 MG/ML inj SYRINge IV PRN (11:05)
[2020-02-26] MEDS ORDERED: LORazepam 2 mg/ml vial IV PRN (11:05)
--- NOTE | 2020-02-26 11:26 | NUR ---
RN IS TO DOCUMENT YES TO ALL APPLICABLE AREAS Pronouncement of : 1. Time Physician Notified: 1126 2. Date of : 02/26/2020 3. Time of : 1126 4. DNR/Withdraw life support documented: yes 5. Monitor strip has been placed on chart: yes 6. Assessment process is of one-minute duration and includes following criteria: a) Patient is unresponsive to all stimuli: yes b) Pupils fixed and non-reactive: yes c) Auscultation of precordium reveals absence of heart tones: yes d) Auscultation of lungs reveals absence of breath sounds: yes e) Absence of blood pressure / all vital signs: yes f) QRS complexes are not present on monitor / EKG strip: yes g) Pacer spikes without capture: NA 4. Comments: Family at bedside, instructed to call [facility], [facility] [place] called per protocol, post mortum completed and prepared for transport.
--- NOTE | 2020-02-26 14:25 | NUR ---
[facility] here to product picker patient's body. All documents signed, belongings at [facility] and Patient's POA was notified he can go to lobby to retrieve.
[2020-02-26] MEDS ORDERED: ipratropium/albuterol 3ml nebule NEB SCH (15:00)
== END 2020-02-26 11:26 | disposition expired | DRG 870 ==
LOC: EDUNIT# 21:58 → ER 22:08 → ED HOLD 23:52 → ICU 2S 02-04 00:11
PROVIDERS: ADMIT Internal Medicine Critical Care Medicine; ATTEND Internal Medicine Critical Care Medicine
PROC: 5A1955Z Respiratory Ventilation, Greater than 96 Consecutive Hours (ICD-10-PCS; principal; 2020-02-03)
PROC: 0BH17EZ Insertion of Endotracheal Airway into Trachea, Via Natural or Artificial Opening (ICD-10-PCS; 2020-02-03)
PROC: 5A1D70Z Performance of Urinary Filtration, Intermittent, Less than 6 Hours Per Day (ICD-10-PCS; 2020-02-08)
PROC: 05HY33Z Insertion of Infusion Device into Upper Vein, Percutaneous Approach (ICD-10-PCS; 2020-02-10)
PROC: B543ZZA Ultrasonography of Right Jugular Veins, Guidance (ICD-10-PCS; 2020-02-10)
PROC: 5A1D70Z Performance of Urinary Filtration, Intermittent, Less than 6 Hours Per Day (ICD-10-PCS; 2020-02-11)
PROC: 5A1D70Z Performance of Urinary Filtration, Intermittent, Less than 6 Hours Per Day (ICD-10-PCS; 2020-02-12)
PROC: 5A1D70Z Performance of Urinary Filtration, Intermittent, Less than 6 Hours Per Day (ICD-10-PCS; 2020-02-15)
PROC: 5A1D70Z Performance of Urinary Filtration, Intermittent, Less than 6 Hours Per Day (ICD-10-PCS; 2020-02-17)
PROC: 5A1D70Z Performance of Urinary Filtration, Intermittent, Less than 6 Hours Per Day (ICD-10-PCS; 2020-02-19)
PROC: 5A1D70Z Performance of Urinary Filtration, Intermittent, Less than 6 Hours Per Day (ICD-10-PCS; 2020-02-21)
PROC: 5A1D70Z Performance of Urinary Filtration, Intermittent, Less than 6 Hours Per Day (ICD-10-PCS; 2020-02-24)
DX: A41.9 Sepsis, unspecified organism (principal); I50.33 Acute on chronic diastolic (congestive) heart failure; J18.9 Pneumonia, unspecified organism; J96.21 Acute and chronic respiratory failure with hypoxia; R65.21 Severe sepsis with septic shock; J44.1 Chronic obstructive pulmonary disease with (acute) exacerbation; J44.0 Chronic obstructive pulmonary disease with (acute) lower respiratory infection; N17.9 Acute kidney failure, unspecified; E87.0 Hyperosmolality and hypernatremia; E11.9 Type 2 diabetes mellitus without complications; E87.5 Hyperkalemia; F17.200 Nicotine dependence, unspecified, uncomplicated; I11.0 Hypertensive heart disease with heart failure; I27.20 Pulmonary hypertension, unspecified; Z51.5 Encounter for palliative care; Z91.19 Patient's noncompliance with other medical treatment and regimen; Z99.2 Dependence on renal dialysis; Z79.899 Other long term (current) drug therapy
CPT/HCPCS: 36415; 36600; 71045; 76937; 80048; 80053; 80202; 81001; 81003; 82150; 82803; 82948; 83036; 83690; 83735; 83880; 84100; 84134; 84145; 84478; 84484; 85018; 85025; 85027; 85610; 85730; 86885; 86900; 86901; 87040; 87070; 87081; 87340; 93308; 94003; 94640; 94760; 96374; 96375; 99291; C9113; G0257; G0378; J0692; J1160; J1644; J1650; J1815; J1940; J2060; J2150; J2212; J2704; J2920; J2930; J3010; J3370; J3490; J7030; J7060; J7070; J7512; J7626; P9045; P9047; Q4081